=== PATIENT | female | born 1940 | race Caucasian/White ===

== ENCOUNTER 2019-12-31 17:28 | Inpatient (IN) | payer OTHER ==
[2019-12-31 19:30] LABS: ARTERIAL BLD GAS O2 SATURATION 39.4 % (95-98); ARTERIAL BLOOD GAS BASE EXCESS -2.2 mmol/L (-2-2); ARTERIAL BLOOD GAS PCO2 41.3 mmHg (35-45); ARTERIAL BLOOD GAS pH 7.36 (7.35-7.45); CARBOXYHEMOGLOBIN 0.5 % (0-2)
[2019-12-31 19:39] LABS: ARTERIAL BLOOD GAS PO2 < 49 mmHg (80-100)
[2019-12-31 19:46] LABS: BASO % 0.2 % (0-2.0); HEMATOCRIT 40.3 % (32.4-45.2); HEMOGLOBIN 13.5 GM/dL (10.7-15.3); LYMPH % 8.8 % (8-40); MCH 29.8 pg (25.7-33.7); MCHC 33.4 g/dl (32.0-36.0); MEAN CELL VOLUME 89.2 fl (80-96); MEAN PLT VOLUME 9.2 fl (7.5-11.1); MONO % 2.7 % (3.8-10.2); NEUT % 88.3 % (42.8-82.8); PLATELET COUNT 388 K/MM3 (134-434); RBC 4.52 M/mm3 (3.60-5.2); RDW 13.8 % (11.6-15.6); WHITE BLOOD COUNT 12.7 K/mm3 (4.0-10.0)
[2019-12-31 19:49] LABS: INR 1.18 (0.83-1.09)
[2019-12-31 19:52] LABS: ACTIVATED PTT 32.7 SECONDS (25.2-36.5)
[2019-12-31 20:08] LABS: ARTERIAL BLOOD GAS BASE EXCESS -0.9 mmol/L (-2-2); ARTERIAL BLOOD GAS PO2 53.1 mmHg (80-100); ARTERIAL BLOOD GAS pH 7.47 (7.35-7.45)
[2019-12-31 20:11] LABS: ALBUMIN 2.8 g/dl (3.4-5.0); ALK PHOS 136 U/L (45-117); ANION GAP 12 MMOL/L (8-16); BILIRUBIN,TOTAL 0.6 mg/dL (0.2-1); BLOOD UREA NITROGEN 22.9 mg/dL (7-18); CALCIUM 8.3 mg/dL (8.5-10.1); CHLORIDE 102 mmol/L (98-107); CO2 21 mmol/L (21-32); GLUCOSE,RANDOM 117 mg/dL (74-106); POTASSIUM 3.4 mmol/L (3.5-5.1); SGOT/AST 58 U/L (15-37); SGPT/ALT 35 U/L (13-61); SODIUM 135 mmol/L (136-145); TOT PROT 8.2 g/dl (6.4-8.2)
[2019-12-31] MEDS ORDERED: PIPERACILLIN/TAZOB 4.5 GM 4.5 GM in DEXTROSE 5%-WATER 100 ML IVPB ONE (21:48)
[2019-12-31] MEDS ORDERED: VANCOMYCIN 1 GM in D5W (PRE-DOCKED) 1,000 MG/250 ML IVPB ONE (21:48)
[2019-12-31] MEDS ORDERED: ALBUTEROL SO4 HFA INHALER IH PRN (23:14)
[2019-12-31] MEDS ORDERED: CEFTRIAXONE 1 GM in DEXTROSE 5%-WATER - 50 ML IVPB SCH (23:45)
[2020-01-01] MEDS ORDERED: HYDROXYCHLOROQUINE SO4 200 MG TABLET (FP) PO ONE ×2 (00:41→00:45)
[2020-01-01] MEDS ORDERED: CEFTRIAXONE 1 GM/50 ML BAG ONE (00:42)
[2020-01-01] MEDS: HYDROXYCHLOROQUINE SO4 200 MG TABLET (FP) PO SCH ×3 (00:53→22:28)
[2020-01-01] MEDS ORDERED: CEFTRIAXONE 1 GM in DEXTROSE 5%-WATER - 50 ML IVPB SCH (01:45)
[2020-01-01 02:49] LABS: EPI CELLS 17 /uL (0-25.1); HYALINE CASTS 6 /uL (0-3.1); PH,URINE 5.5 (5.0-8.0); URINE APPEARANCE CLOUDY; URINE BACTERIA 569 /uL (0-1359); URINE BILIRUBIN NEGATIVE (NEGATIVE); URINE COLOR YELLOW; URINE GLUCOSE (UA) NEGATIVE (NEGATIVE); URINE KETONE NEGATIVE (NEGATIVE); URINE LEUK ESTERASE 1+ (NEGATIVE); URINE NITRITE NEGATIVE (NEGATIVE); URINE PROTEIN 1+ (NEGATIVE); URINE RBC 33 /uL (0-23.9); URINE WBC 143 /uL (0-25.8)
[2020-01-01 03:42] LABS: LDH 617 U/L (84-246)
[2020-01-01] MEDS: INSULIN SLIDING SCALE (NOVOLOG) 1 VIAL SQ SCH ×4 (06:03→22:42)
[2020-01-01 08:43] LABS: BASO % 0.1 % (0-2.0); HEMATOCRIT 34.1 % (32.4-45.2); HEMOGLOBIN 11.8 GM/dL (10.7-15.3); LYMPH % 14.6 % (8-40); MCH 30.2 pg (25.7-33.7); MCHC 34.6 g/dl (32.0-36.0); MEAN CELL VOLUME 87.2 fl (80-96); MEAN PLT VOLUME 8.6 fl (7.5-11.1); MONO % 2.7 % (3.8-10.2); NEUT % 82.6 % (42.8-82.8); PLATELET COUNT 362 K/MM3 (134-434); RDW 13.7 % (11.6-15.6); WHITE BLOOD COUNT 9.5 K/mm3 (4.0-10.0)
[2020-01-01 09:26] LABS: BLOOD UREA NITROGEN 22.7 mg/dL (7-18); CALCIUM 8.1 mg/dL (8.5-10.1); CREATININE 0.8 mg/dL (0.55-1.3); MAGNESIUM 2.4 mg/dL (1.8-2.4); POTASSIUM 3.3 mmol/L (3.5-5.1)
[2020-01-01] MEDS ORDERED: POTASSIUM CHLORIDE TABS 20 MEQ TABLET.ER (FP) PO ONE (10:28)
[2020-01-01] MEDS: ZINC SULFATE 220 MG CAPSULE (FP) PO SCH ×2 (10:58→22:28)
[2020-01-01] MEDS: ENOXAPARIN NA (PORCINE) 40 MG/0.4 ML DISP.SYRIN SQ SCH (10:59)
[2020-01-01] MEDS: AZITHROMYCIN 250 MG TABLET PO SCH (10:59)
[2020-01-01] MEDS ORDERED: cefTRIAXone SODIUM 1 GM VIAL ONE (21:56)
[2020-01-01] MEDS ORDERED: DEXTROSE 5%-WATER - 50 ML IVPB ONE (21:56)
[2020-01-01] MEDS ORDERED: HYDROXYCHLOROQUINE SO4 200 MG TABLET (FP) PO SCH ×2 (22:00)
[2020-01-01] MEDS: CEFTRIAXONE 1 GM in DEXTROSE 5%-WATER - 50 ML IVPB SCH (22:25)
[2020-01-01] MEDS: ATORVASTATIN CA 40 MG TABLET (FP) PO SCH (22:28)
[2020-01-01] MEDS: ASCORBIC ACID 500 MG TABLET (FP) PO SCH (22:29)
[2020-01-02] MEDS: ACETAMINOPHEN 500 MG TABLET (FP) PO PRN ×2 (02:35→23:19)
[2020-01-02] MEDS: INSULIN SLIDING SCALE (NOVOLOG) 1 VIAL SQ SCH ×4 (06:15→23:31)
[2020-01-02] MEDS: ZINC SULFATE 220 MG CAPSULE (FP) PO SCH ×2 (09:38→23:19)
[2020-01-02] MEDS: ENOXAPARIN NA (PORCINE) 40 MG/0.4 ML DISP.SYRIN SQ SCH (09:38)
[2020-01-02] MEDS: ASCORBIC ACID 500 MG TABLET (FP) PO SCH ×2 (09:38→23:18)
[2020-01-02] MEDS: HYDROXYCHLOROQUINE SO4 200 MG TABLET (FP) PO SCH ×2 (09:38→23:19)
[2020-01-02] MEDS: AZITHROMYCIN 250 MG TABLET PO SCH (09:41)
[2020-01-02 11:49] LABS: BASO % 0.2 % (0-2.0); EOS % 0.1 % (0-4.5); HEMATOCRIT 37.9 % (32.4-45.2); HEMOGLOBIN 12.4 GM/dL (10.7-15.3); LYMPH % 8.7 % (8-40); MCH 29.2 pg (25.7-33.7); MCHC 32.6 g/dl (32.0-36.0); MEAN CELL VOLUME 89.4 fl (80-96); MEAN PLT VOLUME 8.5 fl (7.5-11.1); MONO % 2.8 % (3.8-10.2); NEUT % 88.2 % (42.8-82.8); PLATELET COUNT 404 K/MM3 (134-434); RBC 4.24 M/mm3 (3.60-5.2); WHITE BLOOD COUNT 9.4 K/mm3 (4.0-10.0)
[2020-01-02 12:24] LABS: ALBUMIN 2.2 g/dl (3.4-5.0); BILIRUBIN,TOTAL 0.5 mg/dL (0.2-1); BLOOD UREA NITROGEN 15.8 mg/dL (7-18); CALCIUM 8.3 mg/dL (8.5-10.1); CREATININE 0.6 mg/dL (0.55-1.3); MAGNESIUM 2.2 mg/dL (1.8-2.4); PHOSPHOROUS 3.2 mg/dL (2.5-4.9); POTASSIUM 3.6 mmol/L (3.5-5.1); TOT PROT 6.9 g/dl (6.4-8.2)
[2020-01-02] MEDS ORDERED: HYDROXYCHLOROQUINE SO4 200 MG TABLET (FP) PO SCH (22:00)
[2020-01-02] MEDS ORDERED: cefTRIAXone SODIUM 1 GM VIAL ONE (22:37)
[2020-01-02] MEDS ORDERED: DEXTROSE 5%-WATER - 50 ML IVPB ONE (22:37)
[2020-01-02] MEDS: CEFTRIAXONE 1 GM in DEXTROSE 5%-WATER - 50 ML IVPB SCH (23:18)
[2020-01-02] MEDS: ATORVASTATIN CA 40 MG TABLET (FP) PO SCH (23:19)
[2020-01-03] MEDS: INSULIN SLIDING SCALE (NOVOLOG) 1 VIAL SQ SCH ×4 (06:20→22:10)
[2020-01-03 07:49] LABS: BASO % 0.1 % (0-2.0); EOS % 0.1 % (0-4.5); HEMATOCRIT 39.6 % (32.4-45.2); HEMOGLOBIN 12.9 GM/dL (10.7-15.3); LYMPH % 8.4 % (8-40); MCH 29.3 pg (25.7-33.7); MCHC 32.6 g/dl (32.0-36.0); MEAN CELL VOLUME 89.8 fl (80-96); MEAN PLT VOLUME 8.2 fl (7.5-11.1); MONO % 2.6 % (3.8-10.2); NEUT % 88.8 % (42.8-82.8); PLATELET COUNT 364 K/MM3 (134-434); RBC 4.42 M/mm3 (3.60-5.2); RDW 14.1 % (11.6-15.6)
[2020-01-03 08:32] LABS: ALBUMIN 2.3 g/dl (3.4-5.0); BILIRUBIN,TOTAL 0.6 mg/dL (0.2-1); BLOOD UREA NITROGEN 15.4 mg/dL (7-18); CALCIUM 8.4 mg/dL (8.5-10.1); CREATININE 0.6 mg/dL (0.55-1.3); MAGNESIUM 2.5 mg/dL (1.8-2.4); PHOSPHOROUS 3.8 mg/dL (2.5-4.9); POTASSIUM 3.7 mmol/L (3.5-5.1); TOT PROT 7.2 g/dl (6.4-8.2)
[2020-01-03] MEDS: ZINC SULFATE 220 MG CAPSULE (FP) PO SCH ×2 (10:28→22:00)
[2020-01-03] MEDS: AZITHROMYCIN 250 MG TABLET PO SCH (10:29)
[2020-01-03] MEDS: HYDROXYCHLOROQUINE SO4 200 MG TABLET (FP) PO SCH ×2 (10:29→22:00)
[2020-01-03] MEDS: ASCORBIC ACID 500 MG TABLET (FP) PO SCH ×2 (10:29→22:00)
[2020-01-03] MEDS: ENOXAPARIN NA (PORCINE) 40 MG/0.4 ML DISP.SYRIN SQ SCH (10:35)
[2020-01-03] MEDS ORDERED: cefTRIAXone SODIUM 1 GM VIAL ONE (21:34)
[2020-01-03] MEDS ORDERED: DEXTROSE 5%-WATER - 50 ML IVPB ONE (21:34)
[2020-01-03] MEDS: ATORVASTATIN CA 40 MG TABLET (FP) PO SCH (22:00)
[2020-01-03] MEDS: CEFTRIAXONE 1 GM in DEXTROSE 5%-WATER - 50 ML IVPB SCH (22:01)
[2020-01-03] MEDS: ENOXAPARIN NA (PORCINE) 80 MG/0.8 ML DISP.SYRIN SQ SCH (22:01)
[2020-01-04] MEDS: INSULIN SLIDING SCALE (NOVOLOG) 1 VIAL SQ SCH ×4 (06:03→22:40)
[2020-01-04 07:27] LABS: BASO % 0.2 % (0-2.0); HEMATOCRIT 36.8 % (32.4-45.2); HEMOGLOBIN 12.3 GM/dL (10.7-15.3); LYMPH % 10.7 % (8-40); MCH 29.4 pg (25.7-33.7); MCHC 33.4 g/dl (32.0-36.0); MEAN CELL VOLUME 88.1 fl (80-96); MEAN PLT VOLUME 8.4 fl (7.5-11.1); MONO % 2.3 % (3.8-10.2); NEUT % 85.8 % (42.8-82.8); PLATELET COUNT 370 K/MM3 (134-434); RBC 4.17 M/mm3 (3.60-5.2); RDW 13.9 % (11.6-15.6); WHITE BLOOD COUNT 9.6 K/mm3 (4.0-10.0)
[2020-01-04 07:51] LABS: ALBUMIN 2.2 g/dl (3.4-5.0); BILIRUBIN,TOTAL 0.6 mg/dL (0.2-1); BLOOD UREA NITROGEN 16.3 mg/dL (7-18); CALCIUM 8.2 mg/dL (8.5-10.1); CREATININE 0.6 mg/dL (0.55-1.3); MAGNESIUM 2.4 mg/dL (1.8-2.4); PHOSPHOROUS 3.6 mg/dL (2.5-4.9); POTASSIUM 3.9 mmol/L (3.5-5.1)
[2020-01-04] MEDS: ZINC SULFATE 220 MG CAPSULE (FP) PO SCH ×2 (10:51→22:15)
[2020-01-04] MEDS: AZITHROMYCIN 250 MG TABLET PO SCH (10:51)
[2020-01-04] MEDS: ENOXAPARIN NA (PORCINE) 80 MG/0.8 ML DISP.SYRIN SQ SCH ×2 (10:51→22:16)
[2020-01-04] MEDS: HYDROXYCHLOROQUINE SO4 200 MG TABLET (FP) PO SCH ×2 (10:51→22:15)
[2020-01-04] MEDS: ASCORBIC ACID 500 MG TABLET (FP) PO SCH ×2 (11:00→22:15)
[2020-01-04] MEDS ORDERED: DEXTROSE 5%-WATER - 50 ML IVPB ONE (22:01)
[2020-01-04] MEDS ORDERED: cefTRIAXone SODIUM 1 GM VIAL ONE (22:01)
[2020-01-04] MEDS: ATORVASTATIN CA 40 MG TABLET (FP) PO SCH (22:15)
[2020-01-04] MEDS: CEFTRIAXONE 1 GM in DEXTROSE 5%-WATER - 50 ML IVPB SCH (22:17)
[2020-01-05] MEDS: INSULIN SLIDING SCALE (NOVOLOG) 1 VIAL SQ SCH ×3 (06:10→21:25)
[2020-01-05] MEDS: ENOXAPARIN NA (PORCINE) 80 MG/0.8 ML DISP.SYRIN SQ SCH ×2 (09:28→21:25)
[2020-01-05] MEDS: ZINC SULFATE 220 MG CAPSULE (FP) PO SCH ×2 (09:29→21:29)
[2020-01-05] MEDS: AZITHROMYCIN 250 MG TABLET PO SCH (09:29)
[2020-01-05] MEDS: ASCORBIC ACID 500 MG TABLET (FP) PO SCH ×2 (09:29→21:23)
[2020-01-05] MEDS: HYDROXYCHLOROQUINE SO4 200 MG TABLET (FP) PO SCH (09:29)
[2020-01-05 10:06] LABS: BASO % 1.2 % (0-2.0); EOS % 0.3 % (0-4.5); HEMATOCRIT 36.3 % (32.4-45.2); HEMOGLOBIN 11.8 GM/dL (10.7-15.3); LYMPH % 6.7 % (8-40); MCH 28.8 pg (25.7-33.7); MCHC 32.4 g/dl (32.0-36.0); MEAN CELL VOLUME 88.8 fl (80-96); MEAN PLT VOLUME 8.5 fl (7.5-11.1); MONO % 2.5 % (3.8-10.2); NEUT % 89.3 % (42.8-82.8); PLATELET COUNT 415 K/MM3 (134-434); RBC 4.09 M/mm3 (3.60-5.2); RDW 14.4 % (11.6-15.6); WHITE BLOOD COUNT 12.2 K/mm3 (4.0-10.0)
[2020-01-05 10:31] LABS: ALBUMIN 2.1 g/dl (3.4-5.0); BILIRUBIN,TOTAL 0.6 mg/dL (0.2-1); CREATININE 0.6 mg/dL (0.55-1.3); POTASSIUM 4.2 mmol/L (3.5-5.1); TOT PROT 7.1 g/dl (6.4-8.2)
[2020-01-05 13:36] LABS: ANISOCYTOSIS 0; MACROCYTOSIS 0; PLATELET ESTIMATE NORMAL
[2020-01-05] MEDS ORDERED: DEXTROSE 5%-WATER - 50 ML IVPB ONE (20:35)
[2020-01-05] MEDS ORDERED: cefTRIAXone SODIUM 1 GM VIAL ONE (20:35)
[2020-01-05] MEDS: ATORVASTATIN CA 40 MG TABLET (FP) PO SCH (21:23)
[2020-01-05] MEDS: CEFTRIAXONE 1 GM in DEXTROSE 5%-WATER - 50 ML IVPB SCH (21:24)
[2020-01-06] MEDS: INSULIN SLIDING SCALE (NOVOLOG) 1 VIAL SQ SCH ×3 (06:17→16:46)
[2020-01-06 07:28] LABS: BASO % 0.1 % (0-2.0); EOS % 0.4 % (0-4.5); HEMATOCRIT 37.3 % (32.4-45.2); HEMOGLOBIN 12.2 GM/dL (10.7-15.3); MCHC 32.6 g/dl (32.0-36.0); MEAN PLT VOLUME 8.5 fl (7.5-11.1); MONO % 1.3 % (3.8-10.2); NEUT % 91.2 % (42.8-82.8); PLATELET COUNT 406 K/MM3 (134-434); RBC 4.19 M/mm3 (3.60-5.2); RDW 14.2 % (11.6-15.6); WHITE BLOOD COUNT 13.4 K/mm3 (4.0-10.0)
[2020-01-06 07:59] LABS: ALBUMIN 2.1 g/dl (3.4-5.0); CALCIUM 8.2 mg/dL (8.5-10.1); CREATININE 0.7 mg/dL (0.55-1.3); MAGNESIUM 2.4 mg/dL (1.8-2.4); PHOSPHOROUS 3.7 mg/dL (2.5-4.9); POTASSIUM 4.4 mmol/L (3.5-5.1); TOT PROT 7.2 g/dl (6.4-8.2)
[2020-01-06 09:46] LABS: ANISOCYTOSIS 0; MACROCYTOSIS 0; PLATELET ESTIMATE NORMAL
[2020-01-06] MEDS ORDERED: methylPREDNISolone NA SUCC 125 MG/2 ML VIAL IVPUSH SCH (10:45)
[2020-01-06] MEDS: ENOXAPARIN NA (PORCINE) 80 MG/0.8 ML DISP.SYRIN SQ SCH ×2 (10:51→22:36)
[2020-01-06] MEDS: ZINC SULFATE 220 MG CAPSULE (FP) PO SCH ×2 (10:52→22:37)
[2020-01-06] MEDS: ASCORBIC ACID 500 MG TABLET (FP) PO SCH ×2 (10:52→22:35)
[2020-01-06] MEDS: HYDROXYCHLOROQUINE SO4 200 MG TABLET (FP) PO SCH ×2 (13:40→22:37)
[2020-01-06] MEDS ORDERED: methylPREDNISolone NA SUCC 40 MG/1 ML VIAL IVPUSH ONE (15:34)
[2020-01-06] MEDS ORDERED: methylPREDNISolone NA SUCC 40 MG/1 ML VIAL IVPUSH SCH (22:00)
[2020-01-06] MEDS ORDERED: DEXTROSE 5%-WATER - 50 ML IVPB ONE (22:30)
[2020-01-06] MEDS ORDERED: cefTRIAXone SODIUM 1 GM VIAL ONE (22:30)
[2020-01-06] MEDS: ATORVASTATIN CA 40 MG TABLET (FP) PO SCH (22:36)
[2020-01-06] MEDS: CEFTRIAXONE 1 GM in DEXTROSE 5%-WATER - 50 ML IVPB SCH (22:55)
[2020-01-06] MEDS: ACETAMINOPHEN 500 MG TABLET (FP) PO PRN (22:57)
[2020-01-07 07:10] LABS: BASO % 0.1 % (0-2.0); EOS % 0.1 % (0-4.5); HEMATOCRIT 37.2 % (32.4-45.2); HEMOGLOBIN 12.2 GM/dL (10.7-15.3); LYMPH % 5.5 % (8-40); MCHC 32.7 g/dl (32.0-36.0); MEAN CELL VOLUME 88.7 fl (80-96); MEAN PLT VOLUME 8.8 fl (7.5-11.1); MONO % 1.7 % (3.8-10.2); NEUT % 92.6 % (42.8-82.8); PLATELET COUNT 443 K/MM3 (134-434); RDW 14.4 % (11.6-15.6); WHITE BLOOD COUNT 10.7 K/mm3 (4.0-10.0)
[2020-01-07] MEDS: INSULIN SLIDING SCALE (NOVOLOG) 1 VIAL SQ SCH ×4 (08:00→22:14)
[2020-01-07 08:08] LABS: BILIRUBIN,TOTAL 0.6 mg/dL (0.2-1); BLOOD UREA NITROGEN 29.8 mg/dL (7-18); CALCIUM 8.3 mg/dL (8.5-10.1); CREATININE 0.6 mg/dL (0.55-1.3); MAGNESIUM 2.8 mg/dL (1.8-2.4); PHOSPHOROUS 3.9 mg/dL (2.5-4.9); POTASSIUM 3.9 mmol/L (3.5-5.1); TOT PROT 7.1 g/dl (6.4-8.2)
[2020-01-07 09:53] LABS: ANISOCYTOSIS 0; MACROCYTOSIS 0; PLATELET ESTIMATE NORMAL
[2020-01-07] MEDS: methylPREDNISolone NA SUCC 40 MG/1 ML VIAL IVPUSH SCH ×2 (10:31→21:55)
[2020-01-07] MEDS: ENOXAPARIN NA (PORCINE) 80 MG/0.8 ML DISP.SYRIN SQ SCH ×2 (10:31→21:59)
[2020-01-07] MEDS: ASCORBIC ACID 500 MG TABLET (FP) PO SCH ×2 (10:32→21:55)
[2020-01-07] MEDS: HYDROXYCHLOROQUINE SO4 200 MG TABLET (FP) PO SCH ×2 (10:32→21:57)
[2020-01-07] MEDS: ZINC SULFATE 220 MG CAPSULE (FP) PO SCH ×2 (10:32→21:55)
[2020-01-07] MEDS: PETROLATUM, WHITE 30 GM TUBE TP SCH (12:11)
[2020-01-07] MEDS ORDERED: cefTRIAXone SODIUM 1 GM VIAL ONE (21:48)
[2020-01-07] MEDS ORDERED: DEXTROSE 5%-WATER - 50 ML IVPB ONE (21:49)
[2020-01-07] MEDS: ACETAMINOPHEN 500 MG TABLET (FP) PO PRN (21:56)
[2020-01-07] MEDS: CEFTRIAXONE 1 GM in DEXTROSE 5%-WATER - 50 ML IVPB SCH (21:58)
[2020-01-07] MEDS: ATORVASTATIN CA 40 MG TABLET (FP) PO SCH (21:59)
[2020-01-08] MEDS: ENOXAPARIN NA (PORCINE) 80 MG/0.8 ML DISP.SYRIN SQ SCH ×2 (09:14→22:59)
[2020-01-08] MEDS: ZINC SULFATE 220 MG CAPSULE (FP) PO SCH ×2 (09:15→22:59)
[2020-01-08] MEDS: HYDROXYCHLOROQUINE SO4 200 MG TABLET (FP) PO SCH ×3 (09:16→22:59)
[2020-01-08] MEDS: PETROLATUM, WHITE 30 GM TUBE TP SCH (09:17)
[2020-01-08] MEDS: ASCORBIC ACID 500 MG TABLET (FP) PO SCH ×2 (09:17→23:00)
[2020-01-08] MEDS: methylPREDNISolone NA SUCC 40 MG/1 ML VIAL IVPUSH SCH ×2 (09:17→23:00)
[2020-01-08] MEDS ORDERED: guaiFENesin/D-M SUGAR-FREE/ACLHOL-FREE 118 ML BOTTLE PO PRN (10:28)
[2020-01-08] MEDS: INSULIN SLIDING SCALE (NOVOLOG) 1 VIAL SQ SCH ×3 (11:16→22:57)
[2020-01-08] MEDS ORDERED: DEXTROSE 5%-WATER - 50 ML IVPB ONE (21:43)
[2020-01-08] MEDS ORDERED: cefTRIAXone SODIUM 1 GM VIAL ONE (21:43)
[2020-01-08] MEDS: ATORVASTATIN CA 40 MG TABLET (FP) PO SCH (22:59)
[2020-01-09 06:12] LABS: BASO % 0.2 % (0-2.0); HEMATOCRIT 37.4 % (32.4-45.2); HEMOGLOBIN 12.2 GM/dL (10.7-15.3); MCHC 32.7 g/dl (32.0-36.0); MEAN CELL VOLUME 88.6 fl (80-96); MEAN PLT VOLUME 8.7 fl (7.5-11.1); MONO % 2.2 % (3.8-10.2); NEUT % 93.6 % (42.8-82.8); PLATELET COUNT 547 K/MM3 (134-434); RBC 4.22 M/mm3 (3.60-5.2); RDW 14.3 % (11.6-15.6)
[2020-01-09 06:41] LABS: BLOOD UREA NITROGEN 32.2 mg/dL (7-18); CALCIUM 8.3 mg/dL (8.5-10.1); CREATININE 0.6 mg/dL (0.55-1.3); MAGNESIUM 2.5 mg/dL (1.8-2.4); PHOSPHOROUS 3.7 mg/dL (2.5-4.9); POTASSIUM 3.8 mmol/L (3.5-5.1)
[2020-01-09] MEDS: INSULIN SLIDING SCALE (NOVOLOG) 1 VIAL SQ SCH ×4 (07:06→22:37)
[2020-01-09] MEDS: ZINC SULFATE 220 MG CAPSULE (FP) PO SCH ×2 (09:32→22:00)
[2020-01-09] MEDS: ENOXAPARIN NA (PORCINE) 80 MG/0.8 ML DISP.SYRIN SQ SCH ×2 (09:32→22:00)
[2020-01-09] MEDS: methylPREDNISolone NA SUCC 40 MG/1 ML VIAL IVPUSH SCH ×2 (09:33→22:00)
[2020-01-09] MEDS: HYDROXYCHLOROQUINE SO4 200 MG TABLET (FP) PO SCH ×2 (09:33→22:00)
[2020-01-09] MEDS: PANTOPRAZOLE SODIUM 40 MG VIAL IVPUSH SCH (09:33)
[2020-01-09] MEDS: MUPIROCIN 2% TOPICAL OINTMENT FOR DECOLONIZATION NS SCH ×2 (09:34→22:01)
[2020-01-09] MEDS: ASCORBIC ACID 500 MG TABLET (FP) PO SCH ×2 (09:34→22:01)
[2020-01-09] MEDS: PETROLATUM, WHITE 30 GM TUBE TP SCH (09:34)
[2020-01-09 14:22] LABS: ANISOCYTOSIS 1+; MACROCYTOSIS 1+; OVALOCYTE 1+; PLATELET ESTIMATE INCREASED
[2020-01-09] MEDS: SODIUM CHLORIDE 0.45% 1,000 ML IV SCH (15:02)
[2020-01-09] MEDS: ATORVASTATIN CA 40 MG TABLET (FP) PO SCH (22:00)
[2020-01-09] MEDS: CHLORHEXIDINE GLUCONATE 4% CLEANSER FOR DECOLONIZATION TP SCH (22:00)
[2020-01-10] MEDS: INSULIN SLIDING SCALE (NOVOLOG) 1 VIAL SQ SCH ×4 (06:23→23:00)
[2020-01-10 07:27] LABS: BASO % 0.3 % (0-2.0); HEMATOCRIT 37.2 % (32.4-45.2); HEMOGLOBIN 12.2 GM/dL (10.7-15.3); LYMPH % 3.4 % (8-40); MCHC 32.9 g/dl (32.0-36.0); MEAN CELL VOLUME 88.2 fl (80-96); MONO % 1.4 % (3.8-10.2); NEUT % 94.9 % (42.8-82.8); PLATELET COUNT 521 K/MM3 (134-434); RBC 4.22 M/mm3 (3.60-5.2); WHITE BLOOD COUNT 10.8 K/mm3 (4.0-10.0)
[2020-01-10 07:59] LABS: ALBUMIN 2.1 g/dl (3.4-5.0); BILIRUBIN,TOTAL 0.5 mg/dL (0.2-1); BLOOD UREA NITROGEN 23.2 mg/dL (7-18); CALCIUM 7.8 mg/dL (8.5-10.1); CREATININE 0.5 mg/dL (0.55-1.3); MAGNESIUM 2.3 mg/dL (1.8-2.4); PHOSPHOROUS 3.4 mg/dL (2.5-4.9); POTASSIUM 4.1 mmol/L (3.5-5.1); TOT PROT 6.6 g/dl (6.4-8.2)
[2020-01-10] MEDS: PANTOPRAZOLE SODIUM 40 MG VIAL IVPUSH SCH (09:36)
[2020-01-10] MEDS: methylPREDNISolone NA SUCC 40 MG/1 ML VIAL IVPUSH SCH ×2 (09:36→23:00)
[2020-01-10] MEDS: ENOXAPARIN NA (PORCINE) 80 MG/0.8 ML DISP.SYRIN SQ SCH (09:36)
[2020-01-10] MEDS: MUPIROCIN 2% TOPICAL OINTMENT FOR DECOLONIZATION NS SCH ×2 (09:36→23:00)
[2020-01-10] MEDS: ZINC SULFATE 220 MG CAPSULE (FP) PO SCH ×2 (09:36→23:00)
[2020-01-10 10:40] LABS: ANISOCYTOSIS 0; MACROCYTOSIS 0; PLATELET ESTIMATE INCREASED
[2020-01-10] MEDS: PETROLATUM, WHITE 30 GM TUBE TP SCH (12:08)
[2020-01-10] MEDS: ASCORBIC ACID 500 MG TABLET (FP) PO SCH (12:38)
[2020-01-10] MEDS: SODIUM CHLORIDE 0.45% 1,000 ML IV SCH (17:41)
[2020-01-10] MEDS: CHLORHEXIDINE GLUCONATE 4% CLEANSER FOR DECOLONIZATION TP SCH (23:00)
[2020-01-10] MEDS: ASCORBIC ACID 500 MG/5 ML UNIT DOSE CUP PO SCH (23:00)
[2020-01-10] MEDS: ATORVASTATIN CA 40 MG TABLET (FP) PO SCH (23:00)
[2020-01-11] MEDS: SODIUM CHLORIDE NASAL SPRAY 44 ML BOTTLE NS PRN (04:21)
[2020-01-11 08:13] LABS: BASO % 0.1 % (0-2.0); EOS % 0.1 % (0-4.5); HEMATOCRIT 37.7 % (32.4-45.2); HEMOGLOBIN 12.1 GM/dL (10.7-15.3); LYMPH % 1.9 % (8-40); MCH 28.5 pg (25.7-33.7); MCHC 32.2 g/dl (32.0-36.0); MEAN CELL VOLUME 88.4 fl (80-96); MONO % 0.8 % (3.8-10.2); NEUT % 97.1 % (42.8-82.8); PLATELET COUNT 579 K/MM3 (134-434); RBC 4.27 M/mm3 (3.60-5.2); RDW 14.1 % (11.6-15.6); WHITE BLOOD COUNT 14.9 K/mm3 (4.0-10.0)
[2020-01-11 08:46] LABS: ALBUMIN 2.1 g/dl (3.4-5.0); BILIRUBIN,TOTAL 0.4 mg/dL (0.2-1); BLOOD UREA NITROGEN 19.1 mg/dL (7-18); CALCIUM 7.9 mg/dL (8.5-10.1); CREATININE 0.4 mg/dL (0.55-1.3); MAGNESIUM 2.1 mg/dL (1.8-2.4); PHOSPHOROUS 3.3 mg/dL (2.5-4.9); POTASSIUM 4.5 mmol/L (3.5-5.1); TOT PROT 6.4 g/dl (6.4-8.2)
[2020-01-11 09:11] LABS: ANISOCYTOSIS 0; MACROCYTOSIS 0; PLATELET ESTIMATE INCREASED
[2020-01-11] MEDS ORDERED: PT OWN MED DRAWER 7, Y5N ONE ×2 (10:08→21:23)
[2020-01-11] MEDS: ZINC SULFATE 220 MG CAPSULE (FP) PO SCH ×2 (10:09→21:33)
[2020-01-11] MEDS: methylPREDNISolone NA SUCC 40 MG/1 ML VIAL IVPUSH SCH ×2 (10:10→21:33)
[2020-01-11] MEDS: PANTOPRAZOLE SODIUM 40 MG VIAL IVPUSH SCH (10:12)
[2020-01-11] MEDS: ASCORBIC ACID 500 MG/5 ML UNIT DOSE CUP PO SCH (10:14)
[2020-01-11] MEDS: MUPIROCIN 2% TOPICAL OINTMENT FOR DECOLONIZATION NS SCH ×2 (17:54→21:33)
[2020-01-11] MEDS: ATORVASTATIN CA 40 MG TABLET (FP) PO SCH (21:33)
[2020-01-11] MEDS: CHLORHEXIDINE GLUCONATE 4% CLEANSER FOR DECOLONIZATION TP SCH (21:33)
[2020-01-12] MEDS: ASCORBIC ACID 500 MG/5 ML UNIT DOSE CUP PO SCH (00:23)
[2020-01-12] MEDS ORDERED: PT OWN MED DRAWER 7, Y5N ONE (08:16)
[2020-01-12 08:23] LABS: BASO % 0.2 % (0-2.0); HEMOGLOBIN 12.7 GM/dL (10.7-15.3); LYMPH % 4.6 % (8-40); MCH 28.4 pg (25.7-33.7); MCHC 31.7 g/dl (32.0-36.0); MEAN CELL VOLUME 89.5 fl (80-96); MEAN PLT VOLUME 9.1 fl (7.5-11.1); MONO % 1.6 % (3.8-10.2); NEUT % 93.6 % (42.8-82.8); PLATELET COUNT 543 K/MM3 (134-434); RBC 4.46 M/mm3 (3.60-5.2); WHITE BLOOD COUNT 12.4 K/mm3 (4.0-10.0)
[2020-01-12 08:42] LABS: ALLENS TEST POSITIVE; ARTERIAL BLD GAS O2 SATURATION 92.4 % (95-98); ARTERIAL BLOOD GAS BASE EXCESS 4.6 mmol/L (-2-2); ARTERIAL BLOOD GAS PCO2 43.1 mmHg (35-45); ARTERIAL BLOOD GAS PO2 67.6 mmHg (80-100); ARTERIAL BLOOD GAS pH 7.44 (7.35-7.45)
[2020-01-12 09:03] LABS: ALBUMIN 2.1 g/dl (3.4-5.0); BILIRUBIN,TOTAL 0.6 mg/dL (0.2-1); CREATININE 0.5 mg/dL (0.55-1.3); MAGNESIUM 2.5 mg/dL (1.8-2.4); PHOSPHOROUS 3.6 mg/dL (2.5-4.9); POTASSIUM 4.5 mmol/L (3.5-5.1); TOT PROT 6.4 g/dl (6.4-8.2)
[2020-01-12] MEDS: ZINC SULFATE 220 MG CAPSULE (FP) PO SCH ×2 (10:10→22:25)
[2020-01-12] MEDS: PANTOPRAZOLE SODIUM 40 MG VIAL IVPUSH SCH (10:38)
[2020-01-12] MEDS: MUPIROCIN 2% TOPICAL OINTMENT FOR DECOLONIZATION NS SCH ×2 (10:38→22:24)
[2020-01-12] MEDS: ASCORBIC ACID 1,000 MG TABLET PO SCH ×2 (10:38→22:25)
[2020-01-12] MEDS: SODIUM CHLORIDE NASAL SPRAY 44 ML BOTTLE NS PRN (10:39)
[2020-01-12 10:58] LABS: ANISOCYTOSIS 1+; MACROCYTOSIS 0; PLATELET ESTIMATE INCREASED
[2020-01-12] MEDS: CHLORHEXIDINE GLUCONATE 4% CLEANSER FOR DECOLONIZATION TP SCH (22:24)
[2020-01-12] MEDS: ATORVASTATIN CA 40 MG TABLET (FP) PO SCH (22:25)
[2020-01-13] MEDS ORDERED: METOCLOPRAMIDE HCL INJECTION 10 MG/2 ML VIAL IVPUSH ONE (03:50)
[2020-01-13] MEDS ORDERED: FAMOTIDINE 20 MG/50 ML IVPB 20 MG/50 ML MG IVPB ONE (04:28)
[2020-01-13] MEDS: SODIUM CHLORIDE NASAL SPRAY 44 ML BOTTLE NS PRN (05:15)
[2020-01-13 06:33] LABS: BASO % 0.3 % (0-2.0); EOS % 0.8 % (0-4.5); HEMATOCRIT 40.6 % (32.4-45.2); HEMOGLOBIN 13.2 GM/dL (10.7-15.3); LYMPH % 5.8 % (8-40); MCH 28.9 pg (25.7-33.7); MCHC 32.6 g/dl (32.0-36.0); MEAN CELL VOLUME 88.9 fl (80-96); MEAN PLT VOLUME 8.4 fl (7.5-11.1); MONO % 1.7 % (3.8-10.2); NEUT % 91.4 % (42.8-82.8); PLATELET COUNT 523 K/MM3 (134-434); RBC 4.57 M/mm3 (3.60-5.2); RDW 14.3 % (11.6-15.6); WHITE BLOOD COUNT 20.4 K/mm3 (4.0-10.0)
[2020-01-13 07:01] LABS: ALBUMIN 2.4 g/dl (3.4-5.0); BILIRUBIN,TOTAL 0.5 mg/dL (0.2-1); BLOOD UREA NITROGEN 25.5 mg/dL (7-18); CALCIUM 8.1 mg/dL (8.5-10.1); CREATININE 0.5 mg/dL (0.55-1.3); PHOSPHOROUS 3.8 mg/dL (2.5-4.9); TOT PROT 6.8 g/dl (6.4-8.2)
[2020-01-13 07:21] LABS: ARTERIAL BLOOD GAS BASE EXCESS 3.7 mmol/L (-2-2); ARTERIAL BLOOD GAS PO2 56.7 mmHg (80-100)
[2020-01-13 08:08] LABS: ALLENS TEST POSITIVE
[2020-01-13] MEDS ORDERED: PT OWN MED DRAWER 7, Y5N ONE (08:19)
[2020-01-13 08:52] LABS: MAGNESIUM 2.3 mg/dL (1.8-2.4); POTASSIUM 4.5 mmol/L (3.5-5.1)
[2020-01-13] MEDS: MUPIROCIN 2% TOPICAL OINTMENT FOR DECOLONIZATION NS SCH ×2 (09:08→21:26)
[2020-01-13] MEDS: ZINC SULFATE 220 MG CAPSULE (FP) PO SCH ×2 (09:08→21:32)
[2020-01-13] MEDS: ASCORBIC ACID 1,000 MG TABLET PO SCH ×2 (09:08→21:32)
[2020-01-13] MEDS: PANTOPRAZOLE SODIUM 40 MG VIAL IVPUSH SCH (09:08)
[2020-01-13 09:51] LABS: ANISOCYTOSIS 0; MACROCYTOSIS 0; PLATELET ESTIMATE INCREASED
[2020-01-13] MEDS: CHLORHEXIDINE GLUCONATE 4% CLEANSER FOR DECOLONIZATION TP SCH (21:26)
[2020-01-13] MEDS: ATORVASTATIN CA 40 MG TABLET (FP) PO SCH (21:32)
[2020-01-14 06:33] LABS: BASO % 0.2 % (0-2.0); EOS % 1.7 % (0-4.5); HEMATOCRIT 42.2 % (32.4-45.2); HEMOGLOBIN 13.7 GM/dL (10.7-15.3); LYMPH % 7.1 % (8-40); MCH 29.1 pg (25.7-33.7); MCHC 32.4 g/dl (32.0-36.0); MEAN CELL VOLUME 89.8 fl (80-96); MEAN PLT VOLUME 8.6 fl (7.5-11.1); MONO % 1.1 % (3.8-10.2); NEUT % 89.9 % (42.8-82.8); PLATELET COUNT 409 K/MM3 (134-434); RDW 14.6 % (11.6-15.6); WHITE BLOOD COUNT 13.1 K/mm3 (4.0-10.0)
[2020-01-14 07:15] LABS: ALBUMIN 2.1 g/dl (3.4-5.0); BILIRUBIN,TOTAL 0.5 mg/dL (0.2-1); CREATININE 0.4 mg/dL (0.55-1.3); MAGNESIUM 2.2 mg/dL (1.8-2.4); PHOSPHOROUS 3.5 mg/dL (2.5-4.9); POTASSIUM 4.5 mmol/L (3.5-5.1); TOT PROT 6.5 g/dl (6.4-8.2)
[2020-01-14] MEDS ORDERED: PT OWN MED DRAWER 7, Y5N ONE (09:05)
[2020-01-14] MEDS: ZINC SULFATE 220 MG CAPSULE (FP) PO SCH ×2 (11:00→22:13)
[2020-01-14] MEDS: ASCORBIC ACID 1,000 MG TABLET PO SCH ×2 (11:00→22:13)
[2020-01-14] MEDS: PANTOPRAZOLE SODIUM 40 MG VIAL IVPUSH SCH (11:00)
[2020-01-14] MEDS: CHLORHEXIDINE GLUCONATE 4% CLEANSER FOR DECOLONIZATION TP SCH (22:13)
[2020-01-14] MEDS: ATORVASTATIN CA 40 MG TABLET (FP) PO SCH (22:13)
[2020-01-15] MEDS ORDERED: PT OWN MED DRAWER 7, Y5N ONE (01:45)
[2020-01-15 07:13] LABS: EOS % 2.2 % (0-4.5); HEMATOCRIT 41.6 % (32.4-45.2); HEMOGLOBIN 13.3 GM/dL (10.7-15.3); LYMPH % 8.1 % (8-40); MCH 28.3 pg (25.7-33.7); MCHC 31.9 g/dl (32.0-36.0); MEAN CELL VOLUME 88.7 fl (80-96); MEAN PLT VOLUME 8.7 fl (7.5-11.1); MONO % 2.2 % (3.8-10.2); NEUT % 87.5 % (42.8-82.8); PLATELET COUNT 395 K/MM3 (134-434); RBC 4.69 M/mm3 (3.60-5.2); RDW 14.8 % (11.6-15.6); WHITE BLOOD COUNT 12.2 K/mm3 (4.0-10.0)
[2020-01-15 07:44] LABS: BILIRUBIN,TOTAL 0.5 mg/dL (0.2-1); CALCIUM 8.3 mg/dL (8.5-10.1); CREATININE 0.5 mg/dL (0.55-1.3); MAGNESIUM 2.3 mg/dL (1.8-2.4); PHOSPHOROUS 3.2 mg/dL (2.5-4.9); POTASSIUM 4.6 mmol/L (3.5-5.1); TOT PROT 6.5 g/dl (6.4-8.2)
[2020-01-15] MEDS: ZINC SULFATE 220 MG CAPSULE (FP) PO SCH ×2 (09:24→22:09)
[2020-01-15] MEDS: PANTOPRAZOLE SODIUM 40 MG VIAL IVPUSH SCH (09:24)
[2020-01-15] MEDS: ASCORBIC ACID 1,000 MG TABLET PO SCH ×2 (09:24→22:09)
[2020-01-15] MEDS ORDERED: methylPREDNISolone NA SUCC 40 MG/1 ML VIAL IVPUSH ONE (11:00)
[2020-01-15] MEDS: ENOXAPARIN NA (PORCINE) 60 MG/0.6 ML DISP.SYRIN SQ SCH ×2 (11:25→22:08)
[2020-01-15] MEDS: CHLORHEXIDINE GLUCONATE 4% CLEANSER FOR DECOLONIZATION TP SCH (22:08)
[2020-01-15] MEDS: ATORVASTATIN CA 40 MG TABLET (FP) PO SCH (22:08)
[2020-01-15] MEDS: methylPREDNISolone NA SUCC 40 MG/1 ML VIAL IVPUSH SCH (22:09)
[2020-01-16 06:56] LABS: BASO % 0.2 % (0-2.0); HEMATOCRIT 42.5 % (32.4-45.2); HEMOGLOBIN 13.8 GM/dL (10.7-15.3); LYMPH % 6.1 % (8-40); MCH 29.1 pg (25.7-33.7); MCHC 32.5 g/dl (32.0-36.0); MEAN CELL VOLUME 89.3 fl (80-96); MEAN PLT VOLUME 8.9 fl (7.5-11.1); MONO % 0.9 % (3.8-10.2); NEUT % 92.8 % (42.8-82.8); PLATELET COUNT 388 K/MM3 (134-434); RBC 4.76 M/mm3 (3.60-5.2); RDW 14.6 % (11.6-15.6); WHITE BLOOD COUNT 8.8 K/mm3 (4.0-10.0)
[2020-01-16 07:27] LABS: ALBUMIN 2.2 g/dl (3.4-5.0); BILIRUBIN,TOTAL 0.3 mg/dL (0.2-1); BLOOD UREA NITROGEN 28.8 mg/dL (7-18); CALCIUM 8.6 mg/dL (8.5-10.1); CREATININE 0.5 mg/dL (0.55-1.3); MAGNESIUM 2.3 mg/dL (1.8-2.4); PHOSPHOROUS 4.1 mg/dL (2.5-4.9); POTASSIUM 4.6 mmol/L (3.5-5.1); TOT PROT 6.6 g/dl (6.4-8.2)
[2020-01-16] MEDS ORDERED: methylPREDNISolone NA SUCC 40 MG/1 ML VIAL IVPUSH SCH ×2 (10:00)
[2020-01-16] MEDS: ENOXAPARIN NA (PORCINE) 60 MG/0.6 ML DISP.SYRIN SQ SCH (10:03)
[2020-01-16] MEDS: ZINC SULFATE 220 MG CAPSULE (FP) PO SCH (10:03)
[2020-01-16] MEDS: methylPREDNISolone NA SUCC 40 MG/1 ML VIAL IVPUSH SCH (10:03)
[2020-01-16] MEDS: ASCORBIC ACID 1,000 MG TABLET PO SCH (10:03)
[2020-01-16] MEDS: PANTOPRAZOLE SODIUM 40 MG VIAL IVPUSH SCH (10:30)
[2020-01-16 11:08] LABS: ANISOCYTOSIS 1+; MACROCYTOSIS 0; PLATELET ESTIMATE NORMAL
[2020-01-17] MEDS: ATORVASTATIN CA 40 MG TABLET (FP) PO SCH ×2 (00:02→21:41)
[2020-01-17] MEDS: CHLORHEXIDINE GLUCONATE 4% CLEANSER FOR DECOLONIZATION TP SCH ×2 (00:02→21:41)
[2020-01-17] MEDS: ENOXAPARIN NA (PORCINE) 60 MG/0.6 ML DISP.SYRIN SQ SCH ×3 (00:03→21:41)
[2020-01-17] MEDS: methylPREDNISolone NA SUCC 40 MG/1 ML VIAL IVPUSH SCH ×3 (00:03→21:42)
[2020-01-17] MEDS: ASCORBIC ACID 1,000 MG TABLET PO SCH ×3 (00:03→21:42)
[2020-01-17] MEDS: ZINC SULFATE 220 MG CAPSULE (FP) PO SCH ×3 (00:03→21:41)
[2020-01-17 08:28] LABS: BASO % 0.1 % (0-2.0); HEMATOCRIT 42.6 % (32.4-45.2); HEMOGLOBIN 13.5 GM/dL (10.7-15.3); LYMPH % 7.3 % (8-40); MCH 28.7 pg (25.7-33.7); MCHC 31.6 g/dl (32.0-36.0); MEAN CELL VOLUME 90.9 fl (80-96); MEAN PLT VOLUME 9.7 fl (7.5-11.1); MONO % 3.1 % (3.8-10.2); NEUT % 89.5 % (42.8-82.8); PLATELET COUNT 386 K/MM3 (134-434); RBC 4.69 M/mm3 (3.60-5.2); RDW 14.4 % (11.6-15.6); WHITE BLOOD COUNT 12.8 K/mm3 (4.0-10.0)
[2020-01-17 09:11] LABS: ALBUMIN 2.2 g/dl (3.4-5.0); BILIRUBIN,TOTAL 0.3 mg/dL (0.2-1); CALCIUM 8.2 mg/dL (8.5-10.1); CREATININE 0.5 mg/dL (0.55-1.3); MAGNESIUM 2.4 mg/dL (1.8-2.4); POTASSIUM 4.5 mmol/L (3.5-5.1); TOT PROT 6.6 g/dl (6.4-8.2)
[2020-01-17] MEDS: PANTOPRAZOLE SODIUM 40 MG VIAL IVPUSH SCH (09:27)
[2020-01-18 06:39] LABS: BASO % 0.3 % (0-2.0); HEMATOCRIT 40.6 % (32.4-45.2); HEMOGLOBIN 13.2 GM/dL (10.7-15.3); LYMPH % 5.4 % (8-40); MCH 29.3 pg (25.7-33.7); MCHC 32.5 g/dl (32.0-36.0); MEAN CELL VOLUME 89.9 fl (80-96); MEAN PLT VOLUME 9.3 fl (7.5-11.1); MONO % 2.5 % (3.8-10.2); NEUT % 91.8 % (42.8-82.8); PLATELET COUNT 350 K/MM3 (134-434); RBC 4.51 M/mm3 (3.60-5.2); RDW 14.5 % (11.6-15.6); WHITE BLOOD COUNT 10.3 K/mm3 (4.0-10.0)
[2020-01-18 07:42] LABS: ALBUMIN 2.4 g/dl (3.4-5.0); BILIRUBIN,TOTAL 0.4 mg/dL (0.2-1); CALCIUM 8.1 mg/dL (8.5-10.1); CREATININE 0.5 mg/dL (0.55-1.3); MAGNESIUM 2.4 mg/dL (1.8-2.4); POTASSIUM 4.2 mmol/L (3.5-5.1); TOT PROT 6.6 g/dl (6.4-8.2)
[2020-01-18] MEDS: PANTOPRAZOLE SODIUM 40 MG VIAL IVPUSH SCH (09:02)
[2020-01-18] MEDS: methylPREDNISolone NA SUCC 40 MG/1 ML VIAL IVPUSH SCH ×2 (09:06→22:35)
[2020-01-18] MEDS: ENOXAPARIN NA (PORCINE) 60 MG/0.6 ML DISP.SYRIN SQ SCH ×2 (09:06→22:34)
[2020-01-18] MEDS: ZINC SULFATE 220 MG CAPSULE (FP) PO SCH ×2 (09:09→22:35)
[2020-01-18] MEDS: ASCORBIC ACID 1,000 MG TABLET PO SCH ×2 (09:19→22:35)
[2020-01-18 10:20] LABS: ANISOCYTOSIS 1+; MACROCYTOSIS 0; PLATELET ESTIMATE NORMAL
[2020-01-18] MEDS ORDERED: ACETAMINOPHEN 650 MG/20.3 ML ORAL SOLUTION (CUPS) PO ONE (14:40)
[2020-01-18] MEDS ORDERED: PT OWN MED DRAWER 7, Y5N ONE (14:46)
[2020-01-18] MEDS: CHLORHEXIDINE GLUCONATE 4% CLEANSER FOR DECOLONIZATION TP SCH (22:33)
[2020-01-18] MEDS: ATORVASTATIN CA 40 MG TABLET (FP) PO SCH (22:34)
[2020-01-19 06:50] LABS: BASO % 0.4 % (0-2.0); EOS % 0.1 % (0-4.5); HEMOGLOBIN 12.8 GM/dL (10.7-15.3); LYMPH % 5.6 % (8-40); MCH 28.8 pg (25.7-33.7); MEAN PLT VOLUME 9.9 fl (7.5-11.1); MONO % 2.1 % (3.8-10.2); NEUT % 91.8 % (42.8-82.8); PLATELET COUNT 324 K/MM3 (134-434); RBC 4.44 M/mm3 (3.60-5.2); RDW 14.5 % (11.6-15.6)
[2020-01-19 07:43] LABS: ALBUMIN 2.4 g/dl (3.4-5.0); BILIRUBIN,TOTAL 0.8 mg/dL (0.2-1); BLOOD UREA NITROGEN 25.2 mg/dL (7-18); CALCIUM 7.9 mg/dL (8.5-10.1); CREATININE 0.4 mg/dL (0.55-1.3); MAGNESIUM 2.1 mg/dL (1.8-2.4); PHOSPHOROUS 3.2 mg/dL (2.5-4.9); POTASSIUM 4.5 mmol/L (3.5-5.1); TOT PROT 6.2 g/dl (6.4-8.2)
[2020-01-19] MEDS: ENOXAPARIN NA (PORCINE) 60 MG/0.6 ML DISP.SYRIN SQ SCH ×2 (10:35→23:12)
[2020-01-19] MEDS: ASCORBIC ACID 1,000 MG TABLET PO SCH ×2 (10:37→23:13)
[2020-01-19] MEDS: ZINC SULFATE 220 MG CAPSULE (FP) PO SCH ×2 (10:37→23:12)
[2020-01-19] MEDS: PANTOPRAZOLE SODIUM 40 MG VIAL IVPUSH SCH (10:41)
[2020-01-19] MEDS: methylPREDNISolone NA SUCC 40 MG/1 ML VIAL IVPUSH SCH ×2 (10:41→23:13)
[2020-01-19 10:52] LABS: ANISOCYTOSIS 0; MACROCYTOSIS 0; PLATELET ESTIMATE NORMAL
[2020-01-19] MEDS: CHLORHEXIDINE GLUCONATE 4% CLEANSER FOR DECOLONIZATION TP SCH (23:12)
[2020-01-19] MEDS: ATORVASTATIN CA 40 MG TABLET (FP) PO SCH (23:12)
[2020-01-19] MEDS: SENNOSIDES 8.6MG TABLET (FP) PO SCH (23:13)
[2020-01-20 06:54] LABS: BASO % 0.2 % (0-2.0); EOS % 0.1 % (0-4.5); HEMATOCRIT 40.1 % (32.4-45.2); MCH 29.1 pg (25.7-33.7); MCHC 32.4 g/dl (32.0-36.0); MEAN CELL VOLUME 89.6 fl (80-96); MEAN PLT VOLUME 9.7 fl (7.5-11.1); NEUT % 90.7 % (42.8-82.8); PLATELET COUNT 348 K/MM3 (134-434); RBC 4.47 M/mm3 (3.60-5.2); RDW 14.6 % (11.6-15.6); WHITE BLOOD COUNT 10.6 K/mm3 (4.0-10.0)
[2020-01-20 08:46] LABS: ALBUMIN 2.5 g/dl (3.4-5.0); BILIRUBIN,TOTAL 0.4 mg/dL (0.2-1); BLOOD UREA NITROGEN 23.1 mg/dL (7-18); CALCIUM 8.3 mg/dL (8.5-10.1); CREATININE 0.4 mg/dL (0.55-1.3); MAGNESIUM 2.2 mg/dL (1.8-2.4); PHOSPHOROUS 3.1 mg/dL (2.5-4.9); POTASSIUM 4.4 mmol/L (3.5-5.1); TOT PROT 6.4 g/dl (6.4-8.2)
[2020-01-20] MEDS: methylPREDNISolone NA SUCC 40 MG/1 ML VIAL IVPUSH SCH ×2 (09:41→21:55)
[2020-01-20] MEDS: PANTOPRAZOLE SODIUM 40 MG VIAL IVPUSH SCH (09:42)
[2020-01-20] MEDS: ZINC SULFATE 220 MG CAPSULE (FP) PO SCH ×2 (09:42→21:57)
[2020-01-20] MEDS: SENNOSIDES 8.6MG TABLET (FP) PO SCH ×2 (09:43→21:57)
[2020-01-20] MEDS: ASCORBIC ACID 1,000 MG TABLET PO SCH ×2 (09:43→21:58)
[2020-01-20] MEDS: ENOXAPARIN NA (PORCINE) 60 MG/0.6 ML DISP.SYRIN SQ SCH ×2 (09:44→21:57)
[2020-01-20] MEDS ORDERED: PT OWN MED DRAWER 7, Y5N ONE (19:27)
[2020-01-20] MEDS: ATORVASTATIN CA 40 MG TABLET (FP) PO SCH (21:57)
[2020-01-20] MEDS: CHLORHEXIDINE GLUCONATE 4% CLEANSER FOR DECOLONIZATION TP SCH (21:57)
[2020-01-21 07:15] LABS: HEMATOCRIT 41.4 % (32.4-45.2); HEMOGLOBIN 13.2 GM/dL (10.7-15.3); MCH 28.4 pg (25.7-33.7); MEAN CELL VOLUME 88.9 fl (80-96); MEAN PLT VOLUME 9.9 fl (7.5-11.1); PLATELET COUNT 321 K/MM3 (134-434); RBC 4.65 M/mm3 (3.60-5.2); RDW 14.6 % (11.6-15.6); WHITE BLOOD COUNT 10.7 K/mm3 (4.0-10.0)
[2020-01-21 07:42] LABS: BLOOD UREA NITROGEN 23.5 mg/dL (7-18); CALCIUM 8.4 mg/dL (8.5-10.1); CREATININE 0.4 mg/dL (0.55-1.3); MAGNESIUM 2.2 mg/dL (1.8-2.4); PHOSPHOROUS 3.3 mg/dL (2.5-4.9); POTASSIUM 4.5 mmol/L (3.5-5.1)
[2020-01-21] MEDS: ZINC SULFATE 220 MG CAPSULE (FP) PO SCH ×2 (09:13→22:38)
[2020-01-21] MEDS: ENOXAPARIN NA (PORCINE) 60 MG/0.6 ML DISP.SYRIN SQ SCH ×2 (09:13→22:37)
[2020-01-21] MEDS: SENNOSIDES 8.6MG TABLET (FP) PO SCH ×2 (09:14→22:38)
[2020-01-21] MEDS: methylPREDNISolone NA SUCC 40 MG/1 ML VIAL IVPUSH SCH ×2 (09:14→22:38)
[2020-01-21] MEDS: PANTOPRAZOLE SODIUM 40 MG VIAL IVPUSH SCH (09:14)
[2020-01-21] MEDS: ASCORBIC ACID 1,000 MG TABLET PO SCH ×2 (09:14→22:39)
[2020-01-21] MEDS ORDERED: guaiFENesin/D-M SUGAR-FREE/ACLHOL-FREE 118 ML BOTTLE PO PRN (13:48)
[2020-01-21] MEDS ORDERED: SODIUM CHLORIDE NASAL SPRAY 44 ML BOTTLE NS PRN (13:48)
[2020-01-21] MEDS ORDERED: ALBUTEROL SO4 HFA INHALER IH PRN (13:48)
[2020-01-21] MEDS: ATORVASTATIN CA 40 MG TABLET (FP) PO SCH (22:37)
[2020-01-21] MEDS: CHLORHEXIDINE GLUCONATE 4% CLEANSER FOR DECOLONIZATION TP SCH (22:37)
[2020-01-22 09:35] LABS: BASO % 0.6 % (0-2.0); HEMATOCRIT 40.2 % (32.4-45.2); HEMOGLOBIN 12.8 GM/dL (10.7-15.3); LYMPH % 6.2 % (8-40); MCH 28.7 pg (25.7-33.7); MCHC 31.9 g/dl (32.0-36.0); MEAN CELL VOLUME 89.9 fl (80-96); MEAN PLT VOLUME 9.8 fl (7.5-11.1); MONO % 1.5 % (3.8-10.2); NEUT % 91.7 % (42.8-82.8); PLATELET COUNT 328 K/MM3 (134-434); RBC 4.47 M/mm3 (3.60-5.2); RDW 14.6 % (11.6-15.6); WHITE BLOOD COUNT 12.9 K/mm3 (4.0-10.0)
[2020-01-22 10:09] LABS: ALBUMIN 2.5 g/dl (3.4-5.0); BILIRUBIN,TOTAL 0.4 mg/dL (0.2-1); BLOOD UREA NITROGEN 31.6 mg/dL (7-18); CALCIUM 8.4 mg/dL (8.5-10.1); CREATININE 0.6 mg/dL (0.55-1.3); MAGNESIUM 2.3 mg/dL (1.8-2.4); PHOSPHOROUS 3.8 mg/dL (2.5-4.9); POTASSIUM 4.7 mmol/L (3.5-5.1); TOT PROT 6.2 g/dl (6.4-8.2)
[2020-01-22] MEDS: ZINC SULFATE 220 MG CAPSULE (FP) PO SCH ×2 (10:39→23:18)
[2020-01-22] MEDS: PANTOPRAZOLE SODIUM 40 MG VIAL IVPUSH SCH (10:39)
[2020-01-22] MEDS: ENOXAPARIN NA (PORCINE) 60 MG/0.6 ML DISP.SYRIN SQ SCH ×2 (10:39→23:18)
[2020-01-22] MEDS: ASCORBIC ACID 1,000 MG TABLET PO SCH ×2 (10:40→23:18)
[2020-01-22] MEDS: methylPREDNISolone NA SUCC 40 MG/1 ML VIAL IVPUSH SCH ×2 (10:40→23:18)
[2020-01-22] MEDS: SENNOSIDES 8.6MG TABLET (FP) PO SCH ×2 (10:40→23:18)
[2020-01-22 11:25] LABS: ANISOCYTOSIS 0; MACROCYTOSIS 0; PLATELET ESTIMATE NORMAL
[2020-01-22] MEDS ORDERED: PT OWN MED DRAWER 7, Y5N ONE (17:58)
[2020-01-22] MEDS: ATORVASTATIN CA 40 MG TABLET (FP) PO SCH (23:17)
[2020-01-22] MEDS: CHLORHEXIDINE GLUCONATE 4% CLEANSER FOR DECOLONIZATION TP SCH (23:18)
[2020-01-23] MEDS: ACETAMINOPHEN 500 MG TABLET (FP) PO PRN (02:10)
[2020-01-23 08:29] LABS: BASO % 0.1 % (0-2.0); HEMATOCRIT 39.4 % (32.4-45.2); HEMOGLOBIN 12.4 GM/dL (10.7-15.3); LYMPH % 2.9 % (8-40); MCH 28.4 pg (25.7-33.7); MCHC 31.5 g/dl (32.0-36.0); MEAN CELL VOLUME 90.1 fl (80-96); MEAN PLT VOLUME 10.1 fl (7.5-11.1); MONO % 0.9 % (3.8-10.2); NEUT % 96.1 % (42.8-82.8); PLATELET COUNT 307 K/MM3 (134-434); RBC 4.37 M/mm3 (3.60-5.2); RDW 14.4 % (11.6-15.6); WHITE BLOOD COUNT 12.3 K/mm3 (4.0-10.0)
[2020-01-23 09:15] LABS: ALBUMIN 2.6 g/dl (3.4-5.0); BILIRUBIN,TOTAL 0.4 mg/dL (0.2-1); BLOOD UREA NITROGEN 31.2 mg/dL (7-18); CALCIUM 8.5 mg/dL (8.5-10.1); CREATININE 0.5 mg/dL (0.55-1.3); MAGNESIUM 2.3 mg/dL (1.8-2.4); PHOSPHOROUS 3.4 mg/dL (2.5-4.9); POTASSIUM 4.8 mmol/L (3.5-5.1); TOT PROT 6.2 g/dl (6.4-8.2)
[2020-01-23] MEDS: methylPREDNISolone NA SUCC 40 MG/1 ML VIAL IVPUSH SCH (09:24)
[2020-01-23] MEDS: PANTOPRAZOLE SODIUM 40 MG VIAL IVPUSH SCH (09:25)
[2020-01-23] MEDS: SENNOSIDES 8.6MG TABLET (FP) PO SCH ×2 (09:28→22:10)
[2020-01-23] MEDS: ENOXAPARIN NA (PORCINE) 60 MG/0.6 ML DISP.SYRIN SQ SCH ×2 (09:28→22:10)
[2020-01-23] MEDS: ASCORBIC ACID 1,000 MG TABLET PO SCH ×2 (09:28→22:10)
[2020-01-23] MEDS: ZINC SULFATE 220 MG CAPSULE (FP) PO SCH ×2 (09:28→22:11)
[2020-01-23 11:19] LABS: ANISOCYTOSIS 0; MACROCYTOSIS 0; PLATELET ESTIMATE NORMAL
[2020-01-23] MEDS: amLODIPine BESYLATE 5 MG TABLET (FP) PO SCH (12:35)
[2020-01-23] MEDS ORDERED: LORazepam 2 MG/ML SDV VIAL IVPUSH ONE (13:53)
[2020-01-23] MEDS ORDERED: LORazepam 2 MG/ML SDV VIAL ONE (14:05)
[2020-01-23] MEDS ORDERED: methylPREDNISolone NA SUCC 40 MG/1 ML VIAL IVPB SCH (22:00)
[2020-01-23] MEDS: ATORVASTATIN CA 10 MG TABLET (FP) PO SCH (22:09)
[2020-01-23] MEDS: methylPREDNISolone NA SUCC 40 MG/1 ML VIAL IVPB SCH (22:10)
[2020-01-23] MEDS: CHLORHEXIDINE GLUCONATE 4% CLEANSER FOR DECOLONIZATION TP SCH (23:51)
[2020-01-24] MEDS ORDERED: LYTES/YERBA SANTA 60 ML SPRAY MM ONE (02:05)
[2020-01-24 08:27] LABS: HEMATOCRIT 36.1 % (32.4-45.2); HEMOGLOBIN 11.5 GM/dL (10.7-15.3); MCH 28.6 pg (25.7-33.7); MCHC 31.8 g/dl (32.0-36.0); MEAN PLT VOLUME 9.9 fl (7.5-11.1); PLATELET COUNT 276 K/MM3 (134-434); RBC 4.01 M/mm3 (3.60-5.2); RDW 14.4 % (11.6-15.6); WHITE BLOOD COUNT 11.6 K/mm3 (4.0-10.0)
[2020-01-24 09:06] LABS: ALBUMIN 2.5 g/dl (3.4-5.0); ALK PHOS 107 U/L (45-117); ANION GAP 5 MMOL/L (8-16); BILIRUBIN,TOTAL 0.6 mg/dL (0.2-1); CALCIUM 8.3 mg/dL (8.5-10.1); CHLORIDE 107 mmol/L (98-107); CO2 37 mmol/L (21-32); CREATININE 0.5 mg/dL (0.55-1.3); GLUCOSE,RANDOM 142 mg/dL (74-106); LDH 429 U/L (84-246); MAGNESIUM 2.3 mg/dL (1.8-2.4); PHOSPHOROUS 3.6 mg/dL (2.5-4.9); POTASSIUM 4.5 mmol/L (3.5-5.1); SGOT/AST 42 U/L (15-37); SGPT/ALT 63 U/L (13-61); SODIUM 148 mmol/L (136-145); TOT PROT 5.8 g/dl (6.4-8.2)
[2020-01-24] MEDS: ENOXAPARIN NA (PORCINE) 60 MG/0.6 ML DISP.SYRIN SQ SCH ×2 (10:44→22:52)
[2020-01-24] MEDS: methylPREDNISolone NA SUCC 40 MG/1 ML VIAL IVPB SCH ×2 (10:44→22:51)
[2020-01-24] MEDS: ZINC SULFATE 220 MG CAPSULE (FP) PO SCH ×2 (10:45→22:51)
[2020-01-24] MEDS: PANTOPRAZOLE SODIUM 40 MG VIAL IVPUSH SCH (10:45)
[2020-01-24] MEDS: amLODIPine BESYLATE 5 MG TABLET (FP) PO SCH (10:45)
[2020-01-24] MEDS: ASCORBIC ACID 1,000 MG TABLET PO SCH ×2 (10:45→22:53)
[2020-01-24] MEDS: SENNOSIDES 8.6MG TABLET (FP) PO SCH ×2 (10:45→22:53)
[2020-01-24] MEDS ORDERED: ALPRAZolam 0.25 MG TABLET PO PRN (11:37)
[2020-01-24] MEDS: AMINO ACIDS/PROTEIN HYDROLYS 30 ML LIQUID.PKT PO SCH (16:42)
[2020-01-24] MEDS: ATORVASTATIN CA 10 MG TABLET (FP) PO SCH (22:51)
[2020-01-25 08:13] LABS: BASO % 0.2 % (0-2.0); HEMATOCRIT 36.5 % (32.4-45.2); HEMOGLOBIN 11.6 GM/dL (10.7-15.3); LYMPH % 5.1 % (8-40); MCH 28.5 pg (25.7-33.7); MCHC 31.9 g/dl (32.0-36.0); MEAN CELL VOLUME 89.4 fl (80-96); MEAN PLT VOLUME 9.9 fl (7.5-11.1); MONO % 2.8 % (3.8-10.2); NEUT % 91.9 % (42.8-82.8); PLATELET COUNT 282 K/MM3 (134-434); RBC 4.09 M/mm3 (3.60-5.2)
[2020-01-25 08:34] LABS: ALBUMIN 2.6 g/dl (3.4-5.0); ALK PHOS 107 U/L (45-117); ANION GAP 5 MMOL/L (8-16); BILIRUBIN,TOTAL 0.4 mg/dL (0.2-1); BLOOD UREA NITROGEN 27.4 mg/dL (7-18); CALCIUM 8.3 mg/dL (8.5-10.1); CHLORIDE 105 mmol/L (98-107); CO2 35 mmol/L (21-32); CREATININE 0.5 mg/dL (0.55-1.3); GLUCOSE,RANDOM 127 mg/dL (74-106); LDH 440 U/L (84-246); MAGNESIUM 2.3 mg/dL (1.8-2.4); PHOSPHOROUS 3.5 mg/dL (2.5-4.9); POTASSIUM 4.3 mmol/L (3.5-5.1); SGOT/AST 44 U/L (15-37); SGPT/ALT 67 U/L (13-61); SODIUM 145 mmol/L (136-145); TOT PROT 5.9 g/dl (6.4-8.2)
[2020-01-25] MEDS: AMINO ACIDS/PROTEIN HYDROLYS 30 ML LIQUID.PKT PO SCH ×2 (08:45→18:06)
[2020-01-25] MEDS ORDERED: ALPRAZolam 0.25 MG TABLET PO PRN (10:40)
[2020-01-25 10:43] LABS: ANISOCYTOSIS 0; MACROCYTOSIS 0; PLATELET ESTIMATE NORMAL
[2020-01-25] MEDS: PANTOPRAZOLE SODIUM 40 MG VIAL IVPUSH SCH (10:46)
[2020-01-25] MEDS: ASCORBIC ACID 1,000 MG TABLET PO SCH ×2 (10:46→22:08)
[2020-01-25] MEDS: ENOXAPARIN NA (PORCINE) 60 MG/0.6 ML DISP.SYRIN SQ SCH ×2 (10:46→22:07)
[2020-01-25] MEDS: amLODIPine BESYLATE 5 MG TABLET (FP) PO SCH (10:46)
[2020-01-25] MEDS: ZINC SULFATE 220 MG CAPSULE (FP) PO SCH ×2 (10:46→22:07)
[2020-01-25] MEDS: SENNOSIDES 8.6MG TABLET (FP) PO SCH ×2 (10:46→22:07)
[2020-01-25] MEDS: methylPREDNISolone NA SUCC 40 MG/1 ML VIAL IVPB SCH ×2 (10:46→22:08)
[2020-01-25] MEDS ORDERED: PT OWN MED DRAWER 7, Y5N ONE (15:18)
[2020-01-25] MEDS: ATORVASTATIN CA 10 MG TABLET (FP) PO SCH (22:07)
[2020-01-26 08:25] LABS: BASO % 0.2 % (0-2.0); EOS % 2.4 % (0-4.5); HEMOGLOBIN 11.2 GM/dL (10.7-15.3); LYMPH % 6.6 % (8-40); MCH 28.9 pg (25.7-33.7); MEAN CELL VOLUME 90.4 fl (80-96); MEAN PLT VOLUME 9.8 fl (7.5-11.1); MONO % 2.5 % (3.8-10.2); NEUT % 88.3 % (42.8-82.8); PLATELET COUNT 267 K/MM3 (134-434); RBC 3.87 M/mm3 (3.60-5.2); RDW 14.7 % (11.6-15.6); WHITE BLOOD COUNT 12.2 K/mm3 (4.0-10.0)
[2020-01-26 08:41] LABS: ALBUMIN 2.6 g/dl (3.4-5.0); BILIRUBIN,TOTAL 0.4 mg/dL (0.2-1); BLOOD UREA NITROGEN 24.4 mg/dL (7-18); CALCIUM 8.2 mg/dL (8.5-10.1); CREATININE 0.4 mg/dL (0.55-1.3); MAGNESIUM 2.1 mg/dL (1.8-2.4); PHOSPHOROUS 3.3 mg/dL (2.5-4.9); POTASSIUM 3.9 mmol/L (3.5-5.1); TOT PROT 5.9 g/dl (6.4-8.2)
[2020-01-26] MEDS: AMINO ACIDS/PROTEIN HYDROLYS 30 ML LIQUID.PKT PO SCH ×2 (09:49→17:05)
[2020-01-26] MEDS: SENNOSIDES 8.6MG TABLET (FP) PO SCH ×2 (09:49→21:42)
[2020-01-26] MEDS: methylPREDNISolone NA SUCC 40 MG/1 ML VIAL IVPB SCH ×2 (09:49→21:40)
[2020-01-26] MEDS: PANTOPRAZOLE SODIUM 40 MG VIAL IVPUSH SCH (09:49)
[2020-01-26] MEDS: amLODIPine BESYLATE 5 MG TABLET (FP) PO SCH (09:49)
[2020-01-26] MEDS: ZINC SULFATE 220 MG CAPSULE (FP) PO SCH ×2 (09:49→21:41)
[2020-01-26] MEDS: ENOXAPARIN NA (PORCINE) 60 MG/0.6 ML DISP.SYRIN SQ SCH ×2 (09:49→21:41)
[2020-01-26] MEDS: ASCORBIC ACID 1,000 MG TABLET PO SCH ×2 (09:49→21:41)
[2020-01-26] MEDS ORDERED: SODIUM CHLORIDE 0.45% 1,000 ML IV SCH (14:30)
[2020-01-26] MEDS: CHLORHEXIDINE GLUCONATE 4% CLEANSER FOR DECOLONIZATION TP SCH (21:41)
[2020-01-26] MEDS: ATORVASTATIN CA 10 MG TABLET (FP) PO SCH (21:41)
[2020-01-27 08:06] LABS: BASO % 0.1 % (0-2.0); HEMATOCRIT 34.5 % (32.4-45.2); HEMOGLOBIN 11.1 GM/dL (10.7-15.3); LYMPH % 3.1 % (8-40); MCH 29.1 pg (25.7-33.7); MCHC 32.1 g/dl (32.0-36.0); MEAN CELL VOLUME 90.6 fl (80-96); MEAN PLT VOLUME 9.5 fl (7.5-11.1); MONO % 1.1 % (3.8-10.2); NEUT % 95.7 % (42.8-82.8); PLATELET COUNT 264 K/MM3 (134-434); RBC 3.81 M/mm3 (3.60-5.2); RDW 14.7 % (11.6-15.6); WHITE BLOOD COUNT 9.8 K/mm3 (4.0-10.0)
[2020-01-27] MEDS ORDERED: methylPREDNISolone NA SUCC 40 MG/1 ML VIAL IVPUSH SCH (09:02)
[2020-01-27 09:27] LABS: ARTERIAL BLD GAS O2 SATURATION 71.4 % (95-98); ARTERIAL BLOOD GAS BASE EXCESS 4.8 mmol/L (-2-2); ARTERIAL BLOOD GAS pH 7.24 (7.35-7.45)
[2020-01-27 09:29] LABS: ARTERIAL BLOOD GAS PO2 < 49 mmHg (80-100)
[2020-01-27 09:54] LABS: ANISOCYTOSIS 0; MACROCYTOSIS 0; PLATELET ESTIMATE NORMAL
[2020-01-27 10:21] LABS: ALBUMIN 2.7 g/dl (3.4-5.0); BILIRUBIN,TOTAL 0.4 mg/dL (0.2-1); BLOOD UREA NITROGEN 24.5 mg/dL (7-18); CALCIUM 8.2 mg/dL (8.5-10.1); CREATININE 0.4 mg/dL (0.55-1.3); MAGNESIUM 2.4 mg/dL (1.8-2.4); PHOSPHOROUS 4.8 mg/dL (2.5-4.9); POTASSIUM 4.4 mmol/L (3.5-5.1); TOT PROT 6.2 g/dl (6.4-8.2)
[2020-01-27] MEDS: ENOXAPARIN NA (PORCINE) 60 MG/0.6 ML DISP.SYRIN SQ SCH ×2 (11:42→21:50)
[2020-01-27] MEDS: methylPREDNISolone NA SUCC 40 MG/1 ML VIAL IVPUSH SCH ×2 (11:42→21:50)
[2020-01-27] MEDS: PANTOPRAZOLE SODIUM 40 MG VIAL IVPUSH SCH (11:42)
[2020-01-27] MEDS: ASCORBIC ACID 1,000 MG TABLET PO SCH ×2 (11:43→21:50)
[2020-01-27] MEDS: ZINC SULFATE 220 MG CAPSULE (FP) PO SCH ×2 (11:43→21:50)
[2020-01-27] MEDS: amLODIPine BESYLATE 5 MG TABLET (FP) PO SCH (11:43)
[2020-01-27] MEDS: AMINO ACIDS/PROTEIN HYDROLYS 30 ML LIQUID.PKT PO SCH ×2 (11:43→17:31)
[2020-01-27] MEDS: SENNOSIDES 8.6MG TABLET (FP) PO SCH ×2 (11:43→21:50)
[2020-01-27 14:52] LABS: ARTERIAL BLOOD GAS BASE EXCESS 3.9 mmol/L (-2-2); ARTERIAL BLOOD GAS PO2 92.8 mmHg (80-100); ARTERIAL BLOOD GAS pH 7.23 (7.35-7.45)
[2020-01-27 14:55] LABS: ARTERIAL BLOOD GAS PCO2 83.1 mmHg (35-45)
[2020-01-27] MEDS: CHLORHEXIDINE GLUCONATE 4% CLEANSER FOR DECOLONIZATION TP SCH (21:49)
[2020-01-27] MEDS: ATORVASTATIN CA 10 MG TABLET (FP) PO SCH (21:50)
[2020-01-28 07:02] LABS: ARTERIAL BLD GAS O2 SATURATION 92.6 % (95-98); ARTERIAL BLOOD GAS BASE EXCESS 8.3 mmol/L (-2-2); ARTERIAL BLOOD GAS PO2 69.9 mmHg (80-100); ARTERIAL BLOOD GAS pH 7.33 (7.35-7.45)
[2020-01-28 07:09] LABS: BASO % 0.1 % (0-2.0); HEMATOCRIT 33.7 % (32.4-45.2); HEMOGLOBIN 10.9 GM/dL (10.7-15.3); LYMPH % 5.4 % (8-40); MCH 29.4 pg (25.7-33.7); MCHC 32.4 g/dl (32.0-36.0); MEAN CELL VOLUME 90.9 fl (80-96); MEAN PLT VOLUME 9.4 fl (7.5-11.1); MONO % 2.7 % (3.8-10.2); NEUT % 91.8 % (42.8-82.8); PLATELET COUNT 271 K/MM3 (134-434); RBC 3.71 M/mm3 (3.60-5.2); RDW 15.1 % (11.6-15.6)
[2020-01-28 07:23] LABS: ALLENS TEST POSITIVE
[2020-01-28 07:26] LABS: ARTERIAL BLOOD GAS PCO2 71.4 mmHg (35-45)
[2020-01-28 07:49] LABS: ALBUMIN 2.7 g/dl (3.4-5.0); BILIRUBIN,TOTAL 0.4 mg/dL (0.2-1); BLOOD UREA NITROGEN 29.9 mg/dL (7-18); CALCIUM 8.3 mg/dL (8.5-10.1); CREATININE 0.4 mg/dL (0.55-1.3); MAGNESIUM 2.3 mg/dL (1.8-2.4); PHOSPHOROUS 3.8 mg/dL (2.5-4.9); POTASSIUM 4.5 mmol/L (3.5-5.1); TOT PROT 6.1 g/dl (6.4-8.2)
[2020-01-28] MEDS: AMINO ACIDS/PROTEIN HYDROLYS 30 ML LIQUID.PKT PO SCH ×2 (08:38→17:18)
[2020-01-28] MEDS: ENOXAPARIN NA (PORCINE) 60 MG/0.6 ML DISP.SYRIN SQ SCH ×2 (09:46→21:12)
[2020-01-28] MEDS: methylPREDNISolone NA SUCC 40 MG/1 ML VIAL IVPUSH SCH ×2 (09:46→21:13)
[2020-01-28] MEDS: PANTOPRAZOLE SODIUM 40 MG VIAL IVPUSH SCH (09:47)
[2020-01-28] MEDS: ZINC SULFATE 220 MG CAPSULE (FP) PO SCH ×2 (09:59→21:12)
[2020-01-28] MEDS: amLODIPine BESYLATE 5 MG TABLET (FP) PO SCH (09:59)
[2020-01-28] MEDS: ASCORBIC ACID 1,000 MG TABLET PO SCH ×2 (09:59→21:13)
[2020-01-28] MEDS: SENNOSIDES 8.6MG TABLET (FP) PO SCH ×2 (09:59→21:12)
[2020-01-28 10:08] LABS: ANISOCYTOSIS 1+; MACROCYTOSIS 0; PLATELET ESTIMATE NORMAL
[2020-01-28] MEDS ORDERED: AMINO ACIDS 4.25%/D5W 1,000 ML IV SCH (16:45)
[2020-01-28] MEDS: CHLORHEXIDINE GLUCONATE 4% CLEANSER FOR DECOLONIZATION TP SCH (21:12)
[2020-01-28] MEDS: ATORVASTATIN CA 10 MG TABLET (FP) PO SCH (21:12)
[2020-01-29 07:12] LABS: ARTERIAL BLOOD GAS PCO2 58.4 mmHg (35-45)
[2020-01-29 07:13] LABS: ALLENS TEST POSITIVE; ARTERIAL BLD GAS O2 SATURATION 98.8 % (95-98); ARTERIAL BLOOD GAS BASE EXCESS 8.7 mmol/L (-2-2); ARTERIAL BLOOD GAS PO2 144 mmHg (80-100)
[2020-01-29 07:36] LABS: BASO % 0.2 % (0-2.0); HEMOGLOBIN 10.2 GM/dL (10.7-15.3); LYMPH % 3.7 % (8-40); MCH 29.8 pg (25.7-33.7); MCHC 32.9 g/dl (32.0-36.0); MEAN CELL VOLUME 90.4 fl (80-96); MEAN PLT VOLUME 9.7 fl (7.5-11.1); MONO % 2.2 % (3.8-10.2); NEUT % 93.9 % (42.8-82.8); PLATELET COUNT 272 K/MM3 (134-434); RBC 3.43 M/mm3 (3.60-5.2); RDW 14.9 % (11.6-15.6); WHITE BLOOD COUNT 8.7 K/mm3 (4.0-10.0)
[2020-01-29 08:28] LABS: ALBUMIN 2.5 g/dl (3.4-5.0); BILIRUBIN,TOTAL 0.3 mg/dL (0.2-1); BLOOD UREA NITROGEN 34.3 mg/dL (7-18); CREATININE 0.4 mg/dL (0.55-1.3); MAGNESIUM 2.1 mg/dL (1.8-2.4); PHOSPHOROUS 2.6 mg/dL (2.5-4.9); POTASSIUM 4.1 mmol/L (3.5-5.1); TOT PROT 5.7 g/dl (6.4-8.2)
[2020-01-29] MEDS: AMINO ACIDS/PROTEIN HYDROLYS 30 ML LIQUID.PKT PO SCH (08:49)
[2020-01-29] MEDS: ENOXAPARIN NA (PORCINE) 60 MG/0.6 ML DISP.SYRIN SQ SCH ×2 (10:04→21:15)
[2020-01-29] MEDS: PANTOPRAZOLE SODIUM 40 MG VIAL IVPUSH SCH (10:05)
[2020-01-29] MEDS: methylPREDNISolone NA SUCC 40 MG/1 ML VIAL IVPUSH SCH ×2 (10:05→21:15)
[2020-01-29] MEDS: ZINC SULFATE 220 MG CAPSULE (FP) PO SCH ×2 (10:27→21:15)
[2020-01-29] MEDS: SENNOSIDES 8.6MG TABLET (FP) PO SCH ×2 (10:27→21:16)
[2020-01-29] MEDS: ASCORBIC ACID 1,000 MG TABLET PO SCH ×2 (10:27→21:16)
[2020-01-29] MEDS: amLODIPine BESYLATE 5 MG TABLET (FP) PO SCH (10:27)
[2020-01-29 11:46] LABS: ANISOCYTOSIS 1+; MACROCYTOSIS 0; OVALOCYTE 1+; PLATELET ESTIMATE NORMAL; TOXIC GRANULATION 1+
[2020-01-29] MEDS: ATORVASTATIN CA 10 MG TABLET (FP) PO SCH (21:15)
[2020-01-29] MEDS: CHLORHEXIDINE GLUCONATE 4% CLEANSER FOR DECOLONIZATION TP SCH (21:16)
[2020-01-30] MEDS: ACETAMINOPHEN 325 MG TABLET (FP) PO PRN (06:08)
[2020-01-30 06:49] LABS: ARTERIAL BLOOD GAS BASE EXCESS 10.2 mmol/L (-2-2); ARTERIAL BLOOD GAS PCO2 54.8 mmHg (35-45); ARTERIAL BLOOD GAS PO2 80.5 mmHg (80-100); ARTERIAL BLOOD GAS pH 7.43 (7.35-7.45)
[2020-01-30 06:50] LABS: ALLENS TEST POSITIVE
[2020-01-30 07:59] LABS: BASO % 0.2 % (0-2.0); HEMATOCRIT 32.8 % (32.4-45.2); HEMOGLOBIN 10.6 GM/dL (10.7-15.3); LYMPH % 4.4 % (8-40); MCH 28.9 pg (25.7-33.7); MCHC 32.3 g/dl (32.0-36.0); MEAN CELL VOLUME 89.6 fl (80-96); MEAN PLT VOLUME 9.7 fl (7.5-11.1); NEUT % 93.4 % (42.8-82.8); PLATELET COUNT 297 K/MM3 (134-434); RBC 3.66 M/mm3 (3.60-5.2); RDW 15.2 % (11.6-15.6); WHITE BLOOD COUNT 9.4 K/mm3 (4.0-10.0)
[2020-01-30 08:41] LABS: ALBUMIN 2.7 g/dl (3.4-5.0); BILIRUBIN,TOTAL 0.8 mg/dL (0.2-1); BLOOD UREA NITROGEN 26.2 mg/dL (7-18); CALCIUM 8.4 mg/dL (8.5-10.1); CREATININE 0.4 mg/dL (0.55-1.3); MAGNESIUM 2.1 mg/dL (1.8-2.4); POTASSIUM 4.1 mmol/L (3.5-5.1)
[2020-01-30] MEDS: ENOXAPARIN NA (PORCINE) 60 MG/0.6 ML DISP.SYRIN SQ SCH ×2 (10:37→21:42)
[2020-01-30] MEDS: amLODIPine BESYLATE 5 MG TABLET (FP) PO SCH (10:38)
[2020-01-30] MEDS: ZINC SULFATE 220 MG CAPSULE (FP) PO SCH ×2 (10:38→21:42)
[2020-01-30] MEDS: SENNOSIDES 8.6MG TABLET (FP) PO SCH ×2 (10:39→21:42)
[2020-01-30] MEDS: ASCORBIC ACID 1,000 MG TABLET PO SCH ×2 (10:39→21:42)
[2020-01-30] MEDS: methylPREDNISolone NA SUCC 40 MG/1 ML VIAL IVPUSH SCH ×2 (10:39→23:19)
[2020-01-30 10:50] LABS: ANISOCYTOSIS 0; MACROCYTOSIS 0; PLATELET ESTIMATE NORMAL
[2020-01-30] MEDS: PANTOPRAZOLE SODIUM 40 MG VIAL IVPUSH SCH (11:38)
[2020-01-30] MEDS: MORPHINE SULFATE 2 MG/ML VIAL IVPUSH PRN (11:38)
[2020-01-30] MEDS: ACETAMINOPHEN 500 MG TABLET (FP) PO PRN (14:59)
[2020-01-30] MEDS: ATORVASTATIN CA 10 MG TABLET (FP) PO SCH (21:42)
[2020-01-30] MEDS: CHLORHEXIDINE GLUCONATE 4% CLEANSER FOR DECOLONIZATION TP SCH (21:42)
[2020-01-30] MEDS ORDERED: methylPREDNISolone NA SUCC 40 MG/1 ML VIAL IVPUSH SCH (22:00)
[2020-01-31] MEDS: MORPHINE SULFATE 2 MG/ML VIAL IVPUSH PRN (00:28)
[2020-01-31 07:12] LABS: HEMATOCRIT 28.4 % (32.4-45.2); HEMOGLOBIN 9.5 GM/dL (10.7-15.3); MCH 30.1 pg (25.7-33.7); MCHC 33.5 g/dl (32.0-36.0); MEAN CELL VOLUME 89.7 fl (80-96); MEAN PLT VOLUME 9.2 fl (7.5-11.1); PLATELET COUNT 280 K/MM3 (134-434); RBC 3.16 M/mm3 (3.60-5.2); RDW 15.2 % (11.6-15.6); WHITE BLOOD COUNT 8.6 K/mm3 (4.0-10.0)
[2020-01-31 07:57] LABS: BLOOD UREA NITROGEN 28.2 mg/dL (7-18); CREATININE 0.4 mg/dL (0.55-1.3); MAGNESIUM 2.1 mg/dL (1.8-2.4); PHOSPHOROUS 2.3 mg/dL (2.5-4.9); POTASSIUM 4.1 mmol/L (3.5-5.1)
[2020-01-31] MEDS: PANTOPRAZOLE SODIUM 40 MG VIAL IVPUSH SCH (09:15)
[2020-01-31] MEDS: SENNOSIDES 8.6MG TABLET (FP) PO SCH ×2 (09:16→21:29)
[2020-01-31] MEDS: ZINC SULFATE 220 MG CAPSULE (FP) PO SCH ×2 (09:16→21:29)
[2020-01-31] MEDS: ENOXAPARIN NA (PORCINE) 60 MG/0.6 ML DISP.SYRIN SQ SCH ×2 (09:16→21:29)
[2020-01-31] MEDS: amLODIPine BESYLATE 5 MG TABLET (FP) PO SCH (09:16)
[2020-01-31] MEDS: ASCORBIC ACID 1,000 MG TABLET PO SCH ×2 (09:16→21:30)
[2020-01-31] MEDS: methylPREDNISolone NA SUCC 40 MG/1 ML VIAL IVPUSH SCH ×2 (09:16→21:30)
[2020-01-31] MEDS ORDERED: POLYETHYLENE GLYCOL 3350 119 GM BTL PO ONE (19:29)
[2020-01-31] MEDS: CHLORHEXIDINE GLUCONATE 4% CLEANSER FOR DECOLONIZATION TP SCH (21:29)
[2020-01-31] MEDS: ATORVASTATIN CA 10 MG TABLET (FP) PO SCH (21:29)
[2020-02-01 06:58] LABS: HEMATOCRIT 29.4 % (32.4-45.2); HEMOGLOBIN 9.5 GM/dL (10.7-15.3); MCH 29.1 pg (25.7-33.7); MCHC 32.2 g/dl (32.0-36.0); MEAN CELL VOLUME 90.4 fl (80-96); MEAN PLT VOLUME 9.1 fl (7.5-11.1); PLATELET COUNT 282 K/MM3 (134-434); RBC 3.25 M/mm3 (3.60-5.2); RDW 15.4 % (11.6-15.6)
[2020-02-01 07:26] LABS: CALCIUM 8.2 mg/dL (8.5-10.1); CREATININE 0.3 mg/dL (0.55-1.3); MAGNESIUM 2.1 mg/dL (1.8-2.4); PHOSPHOROUS 3.4 mg/dL (2.5-4.9); POTASSIUM 4.1 mmol/L (3.5-5.1)
[2020-02-01] MEDS: POLYETHYLENE GLYCOL 3350 119 GM BTL PO SCH (10:13)
[2020-02-01] MEDS: ENOXAPARIN NA (PORCINE) 60 MG/0.6 ML DISP.SYRIN SQ SCH ×2 (10:13→21:28)
[2020-02-01] MEDS: PANTOPRAZOLE SODIUM 40 MG VIAL IVPUSH SCH (10:14)
[2020-02-01] MEDS: methylPREDNISolone NA SUCC 40 MG/1 ML VIAL IVPUSH SCH ×2 (10:14→21:27)
[2020-02-01] MEDS: ASCORBIC ACID 1,000 MG TABLET PO SCH ×2 (10:15→21:29)
[2020-02-01] MEDS: amLODIPine BESYLATE 5 MG TABLET (FP) PO SCH (10:16)
[2020-02-01] MEDS: SENNOSIDES 8.6MG TABLET (FP) PO SCH ×2 (10:16→21:29)
[2020-02-01] MEDS: ZINC SULFATE 220 MG CAPSULE (FP) PO SCH ×2 (10:16→21:28)
[2020-02-01] MEDS: ATORVASTATIN CA 10 MG TABLET (FP) PO SCH (21:28)
[2020-02-01] MEDS: CHLORHEXIDINE GLUCONATE 4% CLEANSER FOR DECOLONIZATION TP SCH (21:29)
[2020-02-02 06:48] LABS: BASO % 0.3 % (0-2.0); EOS % 0.4 % (0-4.5); HEMATOCRIT 27.7 % (32.4-45.2); HEMOGLOBIN 9.1 GM/dL (10.7-15.3); LYMPH % 7.4 % (8-40); MCH 29.8 pg (25.7-33.7); MCHC 32.9 g/dl (32.0-36.0); MEAN CELL VOLUME 90.6 fl (80-96); MEAN PLT VOLUME 9.3 fl (7.5-11.1); MONO % 1.1 % (3.8-10.2); NEUT % 90.8 % (42.8-82.8); PLATELET COUNT 296 K/MM3 (134-434); RBC 3.06 M/mm3 (3.60-5.2); RDW 16.1 % (11.6-15.6)
[2020-02-02 07:17] LABS: ALBUMIN 2.5 g/dl (3.4-5.0); BILIRUBIN,TOTAL 0.5 mg/dL (0.2-1); BLOOD UREA NITROGEN 22.9 mg/dL (7-18); CALCIUM 8.3 mg/dL (8.5-10.1); CREATININE 0.3 mg/dL (0.55-1.3); MAGNESIUM 2.3 mg/dL (1.8-2.4); PHOSPHOROUS 3.6 mg/dL (2.5-4.9); POTASSIUM 4.4 mmol/L (3.5-5.1); TOT PROT 5.5 g/dl (6.4-8.2)
[2020-02-02] MEDS: ENOXAPARIN NA (PORCINE) 60 MG/0.6 ML DISP.SYRIN SQ SCH ×2 (10:23→22:50)
[2020-02-02] MEDS: POLYETHYLENE GLYCOL 3350 119 GM BTL PO SCH (10:23)
[2020-02-02] MEDS: ASCORBIC ACID 1,000 MG TABLET PO SCH ×2 (10:24→22:50)
[2020-02-02] MEDS: PANTOPRAZOLE SODIUM 40 MG VIAL IVPUSH SCH (10:24)
[2020-02-02] MEDS: ZINC SULFATE 220 MG CAPSULE (FP) PO SCH ×2 (10:24→22:50)
[2020-02-02] MEDS: amLODIPine BESYLATE 5 MG TABLET (FP) PO SCH (10:25)
[2020-02-02] MEDS: SENNOSIDES 8.6MG TABLET (FP) PO SCH ×2 (10:25→23:43)
[2020-02-02] MEDS: ATORVASTATIN CA 10 MG TABLET (FP) PO SCH (22:40)
[2020-02-02] MEDS: CHLORHEXIDINE GLUCONATE 4% CLEANSER FOR DECOLONIZATION TP SCH (22:40)
[2020-02-03 06:49] LABS: BASO % 0.2 % (0-2.0); HEMATOCRIT 26.6 % (32.4-45.2); HEMOGLOBIN 8.8 GM/dL (10.7-15.3); LYMPH % 9.2 % (8-40); MCH 29.8 pg (25.7-33.7); MCHC 32.9 g/dl (32.0-36.0); MEAN CELL VOLUME 90.4 fl (80-96); MEAN PLT VOLUME 9.1 fl (7.5-11.1); MONO % 2.1 % (3.8-10.2); NEUT % 83.5 % (42.8-82.8); PLATELET COUNT 282 K/MM3 (134-434); RBC 2.94 M/mm3 (3.60-5.2); RDW 16.2 % (11.6-15.6); WHITE BLOOD COUNT 8.1 K/mm3 (4.0-10.0)
[2020-02-03 07:27] LABS: ALBUMIN 2.4 g/dl (3.4-5.0); BILIRUBIN,TOTAL 0.5 mg/dL (0.2-1); BLOOD UREA NITROGEN 17.4 mg/dL (7-18); CALCIUM 8.4 mg/dL (8.5-10.1); CREATININE 0.3 mg/dL (0.55-1.3); MAGNESIUM 1.9 mg/dL (1.8-2.4); PHOSPHOROUS 3.1 mg/dL (2.5-4.9); POTASSIUM 3.8 mmol/L (3.5-5.1); TOT PROT 5.3 g/dl (6.4-8.2)
[2020-02-03] MEDS ORDERED: ACETAMINOPHEN 1000 MG/100 ML VIAL (NON FORMULARY) IVPB ONE (07:47)
[2020-02-03] MEDS: SENNOSIDES 8.6MG TABLET (FP) PO SCH ×2 (09:48→21:19)
[2020-02-03] MEDS: POLYETHYLENE GLYCOL 3350 119 GM BTL PO SCH (09:48)
[2020-02-03] MEDS ORDERED: LORazepam 2 MG/ML SDV VIAL ONE (10:09)
[2020-02-03] MEDS: PANTOPRAZOLE SODIUM 40 MG VIAL IVPUSH SCH (10:43)
[2020-02-03] MEDS: ENOXAPARIN NA (PORCINE) 60 MG/0.6 ML DISP.SYRIN SQ SCH ×2 (10:43→21:19)
[2020-02-03] MEDS ORDERED: LORazepam 2 MG/ML SDV VIAL IVPUSH ONE (10:52)
[2020-02-03] MEDS ORDERED: LORazepam 2 MG/ML SDV VIAL IM ONE (11:00)
[2020-02-03] MEDS: amLODIPine BESYLATE 5 MG TABLET (FP) PO SCH (11:37)
[2020-02-03] MEDS: ZINC SULFATE 220 MG CAPSULE (FP) PO SCH ×2 (11:37→21:20)
[2020-02-03] MEDS: ASCORBIC ACID 1,000 MG TABLET PO SCH ×2 (11:38→21:20)
[2020-02-03] MEDS: ATORVASTATIN CA 10 MG TABLET (FP) PO SCH (21:18)
[2020-02-03] MEDS: CHLORHEXIDINE GLUCONATE 4% CLEANSER FOR DECOLONIZATION TP SCH (21:18)
[2020-02-03] MEDS ORDERED: MAG HYDROX/AL HYDROX/SIMETH 30 ML UNIT-DOSE CUP PO ONE (22:35)
[2020-02-04] MEDS: ACETAMINOPHEN 325 MG TABLET (FP) PO PRN ×2 (03:05→09:57)
[2020-02-04 07:07] LABS: BASO % 0.1 % (0-2.0); EOS % 4.1 % (0-4.5); HEMATOCRIT 25.5 % (32.4-45.2); HEMOGLOBIN 8.5 GM/dL (10.7-15.3); LYMPH % 11.5 % (8-40); MCHC 33.1 g/dl (32.0-36.0); MEAN CELL VOLUME 90.6 fl (80-96); MEAN PLT VOLUME 9.3 fl (7.5-11.1); MONO % 2.5 % (3.8-10.2); NEUT % 81.8 % (42.8-82.8); PLATELET COUNT 285 K/MM3 (134-434); RBC 2.82 M/mm3 (3.60-5.2); RDW 16.1 % (11.6-15.6); WHITE BLOOD COUNT 7.4 K/mm3 (4.0-10.0)
[2020-02-04] MEDS ORDERED: SODIUM CHLORIDE NASAL SPRAY 44 ML BOTTLE NS PRN (07:18)
[2020-02-04] MEDS ORDERED: ALBUTEROL SO4 HFA INHALER IH PRN (07:18)
[2020-02-04] MEDS ORDERED: MORPHINE SULFATE 2 MG/ML VIAL IVPUSH PRN (07:18)
[2020-02-04] MEDS ORDERED: ACETAMINOPHEN 500 MG TABLET (FP) PO PRN (07:18)
[2020-02-04] MEDS ORDERED: guaiFENesin/D-M SUGAR-FREE/ACLHOL-FREE 118 ML BOTTLE PO PRN (07:18)
[2020-02-04 07:27] LABS: ALBUMIN 2.3 g/dl (3.4-5.0); BILIRUBIN,TOTAL 0.6 mg/dL (0.2-1); BLOOD UREA NITROGEN 17.2 mg/dL (7-18); CREATININE 0.3 mg/dL (0.55-1.3); MAGNESIUM 2.2 mg/dL (1.8-2.4); TOT PROT 5.2 g/dl (6.4-8.2)
[2020-02-04] MEDS ORDERED: PT OWN MED DRAWER 7, Y5N ONE (09:18)
[2020-02-04] MEDS: ENOXAPARIN NA (PORCINE) 60 MG/0.6 ML DISP.SYRIN SQ SCH ×2 (09:56→22:14)
[2020-02-04] MEDS: amLODIPine BESYLATE 5 MG TABLET (FP) PO SCH (09:57)
[2020-02-04] MEDS: POLYETHYLENE GLYCOL 3350 119 GM BTL PO SCH (09:57)
[2020-02-04] MEDS: ZINC SULFATE 220 MG CAPSULE (FP) PO SCH ×2 (09:58→22:14)
[2020-02-04] MEDS: PANTOPRAZOLE SODIUM 40 MG VIAL IVPUSH SCH (09:58)
[2020-02-04] MEDS: SENNOSIDES 8.6MG TABLET (FP) PO SCH ×2 (09:59→22:15)
[2020-02-04] MEDS ORDERED: ASCORBIC ACID 1,000 MG TABLET PO SCH (10:00)
[2020-02-04] MEDS: methylPREDNISolone NA SUCC 40 MG/1 ML VIAL IVPUSH SCH ×2 (14:53→22:13)
[2020-02-04] MEDS: ATORVASTATIN CA 10 MG TABLET (FP) PO SCH (22:14)
[2020-02-04] MEDS: ASCORBIC ACID 500 MG TABLET (FP) PO SCH (22:14)
[2020-02-05 07:07] LABS: BASO % 0.1 % (0-2.0); HEMATOCRIT 24.5 % (32.4-45.2); HEMOGLOBIN 8.1 GM/dL (10.7-15.3); MCH 30.1 pg (25.7-33.7); MCHC 33.1 g/dl (32.0-36.0); MEAN CELL VOLUME 91.1 fl (80-96); MEAN PLT VOLUME 8.9 fl (7.5-11.1); MONO % 1.5 % (3.8-10.2); NEUT % 90.4 % (42.8-82.8); PLATELET COUNT 276 K/MM3 (134-434); RBC 2.69 M/mm3 (3.60-5.2); RDW 17.2 % (11.6-15.6)
[2020-02-05 08:27] LABS: ALBUMIN 2.3 g/dl (3.4-5.0); BILIRUBIN,TOTAL 0.5 mg/dL (0.2-1); BLOOD UREA NITROGEN 23.2 mg/dL (7-18); CALCIUM 8.2 mg/dL (8.5-10.1); CREATININE 0.3 mg/dL (0.55-1.3); POTASSIUM 4.1 mmol/L (3.5-5.1); TOT PROT 5.5 g/dl (6.4-8.2)
[2020-02-05] MEDS: PANTOPRAZOLE SODIUM 40 MG VIAL IVPUSH SCH (09:53)
[2020-02-05] MEDS: ASCORBIC ACID 500 MG TABLET (FP) PO SCH ×2 (09:53→22:15)
[2020-02-05] MEDS: amLODIPine BESYLATE 5 MG TABLET (FP) PO SCH (09:53)
[2020-02-05] MEDS: SENNOSIDES 8.6MG TABLET (FP) PO SCH ×2 (09:54→22:14)
[2020-02-05] MEDS: ENOXAPARIN NA (PORCINE) 60 MG/0.6 ML DISP.SYRIN SQ SCH ×2 (09:54→22:14)
[2020-02-05] MEDS: ZINC SULFATE 220 MG CAPSULE (FP) PO SCH ×2 (09:54→22:14)
[2020-02-05] MEDS: methylPREDNISolone NA SUCC 40 MG/1 ML VIAL IVPUSH SCH ×2 (09:54→22:15)
[2020-02-05] MEDS: POLYETHYLENE GLYCOL 3350 119 GM BTL PO SCH (10:44)
[2020-02-05] MEDS: ATORVASTATIN CA 10 MG TABLET (FP) PO SCH (22:14)
[2020-02-06 07:24] LABS: BASO % 0.1 % (0-2.0); HEMATOCRIT 25.4 % (32.4-45.2); HEMOGLOBIN 8.2 GM/dL (10.7-15.3); LYMPH % 10.7 % (8-40); MCH 29.9 pg (25.7-33.7); MCHC 32.4 g/dl (32.0-36.0); MEAN CELL VOLUME 92.1 fl (80-96); MEAN PLT VOLUME 8.8 fl (7.5-11.1); MONO % 1.5 % (3.8-10.2); NEUT % 87.7 % (42.8-82.8); PLATELET COUNT 293 K/MM3 (134-434); RBC 2.76 M/mm3 (3.60-5.2); RDW 17.3 % (11.6-15.6); WHITE BLOOD COUNT 10.1 K/mm3 (4.0-10.0)
[2020-02-06 07:42] LABS: ALBUMIN 2.5 g/dl (3.4-5.0); BILIRUBIN,TOTAL 0.8 mg/dL (0.2-1); BLOOD UREA NITROGEN 24.6 mg/dL (7-18); CALCIUM 8.4 mg/dL (8.5-10.1); CREATININE 0.3 mg/dL (0.55-1.3); TOT PROT 5.8 g/dl (6.4-8.2)
[2020-02-06] MEDS: ENOXAPARIN NA (PORCINE) 60 MG/0.6 ML DISP.SYRIN SQ SCH ×2 (09:41→21:39)
[2020-02-06] MEDS: PANTOPRAZOLE SODIUM 40 MG VIAL IVPUSH SCH (09:41)
[2020-02-06] MEDS: ZINC SULFATE 220 MG CAPSULE (FP) PO SCH ×2 (09:41→21:39)
[2020-02-06] MEDS: amLODIPine BESYLATE 5 MG TABLET (FP) PO SCH (09:41)
[2020-02-06] MEDS: SENNOSIDES 8.6MG TABLET (FP) PO SCH ×2 (09:42→21:39)
[2020-02-06] MEDS: ASCORBIC ACID 500 MG TABLET (FP) PO SCH ×2 (09:42→21:39)
[2020-02-06] MEDS: methylPREDNISolone NA SUCC 40 MG/1 ML VIAL IVPUSH SCH ×2 (09:42→21:39)
[2020-02-06] MEDS: POLYETHYLENE GLYCOL 3350 119 GM BTL PO SCH (10:08)
[2020-02-06] MEDS: ATORVASTATIN CA 10 MG TABLET (FP) PO SCH (21:38)
[2020-02-07 07:17] LABS: BASO % 0.2 % (0-2.0); HEMOGLOBIN 7.9 GM/dL (10.7-15.3); LYMPH % 8.7 % (8-40); MCH 30.1 pg (25.7-33.7); MCHC 32.7 g/dl (32.0-36.0); MEAN CELL VOLUME 92.1 fl (80-96); MEAN PLT VOLUME 8.6 fl (7.5-11.1); MONO % 2.5 % (3.8-10.2); NEUT % 88.6 % (42.8-82.8); PLATELET COUNT 290 K/MM3 (134-434); RBC 2.61 M/mm3 (3.60-5.2); WHITE BLOOD COUNT 8.9 K/mm3 (4.0-10.0)
[2020-02-07 07:50] LABS: ALBUMIN 2.4 g/dl (3.4-5.0); BILIRUBIN,TOTAL 0.6 mg/dL (0.2-1); BLOOD UREA NITROGEN 21.3 mg/dL (7-18); CALCIUM 8.1 mg/dL (8.5-10.1); CREATININE 0.2 mg/dL (0.55-1.3); MAGNESIUM 2.3 mg/dL (1.8-2.4); PHOSPHOROUS 3.1 mg/dL (2.5-4.9); POTASSIUM 4.4 mmol/L (3.5-5.1); TOT PROT 5.5 g/dl (6.4-8.2)
[2020-02-07] MEDS: ZINC SULFATE 220 MG CAPSULE (FP) PO SCH ×2 (09:21→21:58)
[2020-02-07] MEDS: amLODIPine BESYLATE 5 MG TABLET (FP) PO SCH (09:21)
[2020-02-07] MEDS: POLYETHYLENE GLYCOL 3350 119 GM BTL PO SCH (09:21)
[2020-02-07] MEDS: ASCORBIC ACID 500 MG TABLET (FP) PO SCH ×2 (09:22→21:58)
[2020-02-07] MEDS: SENNOSIDES 8.6MG TABLET (FP) PO SCH ×2 (09:22→21:58)
[2020-02-07] MEDS: ENOXAPARIN NA (PORCINE) 60 MG/0.6 ML DISP.SYRIN SQ SCH (09:24)
[2020-02-07] MEDS: PANTOPRAZOLE SODIUM 40 MG VIAL IVPUSH SCH (09:27)
[2020-02-07] MEDS: methylPREDNISolone NA SUCC 40 MG/1 ML VIAL IVPUSH SCH ×2 (09:27→21:58)
[2020-02-07] MEDS: ACETAMINOPHEN 325 MG TABLET (FP) PO PRN (21:58)
[2020-02-07] MEDS: ATORVASTATIN CA 10 MG TABLET (FP) PO SCH (21:58)
[2020-02-08 07:13] LABS: BASO % 0.1 % (0-2.0); HEMATOCRIT 25.5 % (32.4-45.2); HEMOGLOBIN 8.3 GM/dL (10.7-15.3); LYMPH % 11.8 % (8-40); MCH 30.2 pg (25.7-33.7); MCHC 32.4 g/dl (32.0-36.0); MEAN CELL VOLUME 93.1 fl (80-96); MEAN PLT VOLUME 8.5 fl (7.5-11.1); MONO % 2.7 % (3.8-10.2); NEUT % 85.4 % (42.8-82.8); PLATELET COUNT 307 K/MM3 (134-434); RBC 2.74 M/mm3 (3.60-5.2); RDW 18.6 % (11.6-15.6); WHITE BLOOD COUNT 8.8 K/mm3 (4.0-10.0)
[2020-02-08 09:57] LABS: ANISOCYTOSIS 1+; MACROCYTOSIS 0; PLATELET ESTIMATE NORMAL; TARGET CELLS 1+
[2020-02-08] MEDS: SENNOSIDES 8.6MG TABLET (FP) PO SCH ×2 (10:20→22:18)
[2020-02-08] MEDS: PANTOPRAZOLE SODIUM 40 MG VIAL IVPUSH SCH (10:20)
[2020-02-08] MEDS: amLODIPine BESYLATE 5 MG TABLET (FP) PO SCH (10:20)
[2020-02-08] MEDS: ASCORBIC ACID 500 MG TABLET (FP) PO SCH ×2 (10:20→22:18)
[2020-02-08] MEDS: ZINC SULFATE 220 MG CAPSULE (FP) PO SCH ×2 (10:21→22:18)
[2020-02-08] MEDS: POLYETHYLENE GLYCOL 3350 119 GM BTL PO SCH (10:21)
[2020-02-08] MEDS: methylPREDNISolone NA SUCC 40 MG/1 ML VIAL IVPUSH SCH ×2 (10:22→22:18)
[2020-02-08 16:56] LABS: ARTERIAL BLD GAS O2 SATURATION 96.8 % (95-98); ARTERIAL BLOOD GAS BASE EXCESS 7.4 mmol/L (-2-2); ARTERIAL BLOOD GAS PCO2 69.5 mmHg (35-45); ARTERIAL BLOOD GAS PO2 98.2 mmHg (80-100); ARTERIAL BLOOD GAS pH 7.33 (7.35-7.45)
[2020-02-08 16:57] LABS: ALLENS TEST POSITIVE
[2020-02-08] MEDS: ATORVASTATIN CA 10 MG TABLET (FP) PO SCH (22:17)
[2020-02-08] MEDS: ENOXAPARIN NA (PORCINE) 60 MG/0.6 ML DISP.SYRIN SQ SCH (22:17)
[2020-02-08] MEDS: ACETAMINOPHEN 325 MG TABLET (FP) PO PRN (22:24)
[2020-02-09 06:56] LABS: BASO % 0.1 % (0-2.0); EOS % 0.1 % (0-4.5); HEMATOCRIT 25.7 % (32.4-45.2); HEMOGLOBIN 8.3 GM/dL (10.7-15.3); LYMPH % 9.7 % (8-40); MCH 30.6 pg (25.7-33.7); MCHC 32.4 g/dl (32.0-36.0); MEAN CELL VOLUME 94.4 fl (80-96); MEAN PLT VOLUME 8.5 fl (7.5-11.1); MONO % 1.1 % (3.8-10.2); PLATELET COUNT 281 K/MM3 (134-434); RBC 2.73 M/mm3 (3.60-5.2); RDW 18.6 % (11.6-15.6); WHITE BLOOD COUNT 7.5 K/mm3 (4.0-10.0)
[2020-02-09 07:06] LABS: ALBUMIN 2.6 g/dl (3.4-5.0); BILIRUBIN,TOTAL 0.6 mg/dL (0.2-1); BLOOD UREA NITROGEN 23.3 mg/dL (7-18); CREATININE 0.3 mg/dL (0.55-1.3); MAGNESIUM 2.3 mg/dL (1.8-2.4); PHOSPHOROUS 4.1 mg/dL (2.5-4.9); POTASSIUM 4.4 mmol/L (3.5-5.1); TOT PROT 5.5 g/dl (6.4-8.2)
[2020-02-09] MEDS: ENOXAPARIN NA (PORCINE) 60 MG/0.6 ML DISP.SYRIN SQ SCH ×2 (09:54→21:57)
[2020-02-09] MEDS: PANTOPRAZOLE SODIUM 40 MG VIAL IVPUSH SCH (09:55)
[2020-02-09] MEDS: methylPREDNISolone NA SUCC 40 MG/1 ML VIAL IVPUSH SCH ×2 (09:55→21:58)
[2020-02-09] MEDS: POLYETHYLENE GLYCOL 3350 119 GM BTL PO SCH ×2 (12:24→12:51)
[2020-02-09] MEDS: ZINC SULFATE 220 MG CAPSULE (FP) PO SCH ×3 (12:24→21:57)
[2020-02-09] MEDS: amLODIPine BESYLATE 5 MG TABLET (FP) PO SCH ×2 (12:24→12:52)
[2020-02-09] MEDS: ASCORBIC ACID 500 MG TABLET (FP) PO SCH ×3 (12:25→21:58)
[2020-02-09] MEDS: SENNOSIDES 8.6MG TABLET (FP) PO SCH ×3 (12:25→21:58)
[2020-02-09] MEDS: ATORVASTATIN CA 10 MG TABLET (FP) PO SCH (21:57)
[2020-02-09] MEDS: ACETAMINOPHEN 325 MG TABLET (FP) PO PRN (21:58)
[2020-02-10] MEDS: ENOXAPARIN NA (PORCINE) 60 MG/0.6 ML DISP.SYRIN SQ SCH ×2 (09:49→20:21)
[2020-02-10] MEDS: ASCORBIC ACID 500 MG TABLET (FP) PO SCH ×2 (09:50→22:23)
[2020-02-10] MEDS: POLYETHYLENE GLYCOL 3350 119 GM BTL PO SCH (09:50)
[2020-02-10] MEDS: amLODIPine BESYLATE 5 MG TABLET (FP) PO SCH (09:50)
[2020-02-10] MEDS: methylPREDNISolone NA SUCC 40 MG/1 ML VIAL IVPUSH SCH ×2 (09:50→22:20)
[2020-02-10] MEDS: SENNOSIDES 8.6MG TABLET (FP) PO SCH ×2 (09:50→22:22)
[2020-02-10] MEDS: ZINC SULFATE 220 MG CAPSULE (FP) PO SCH ×2 (09:50→22:22)
[2020-02-10] MEDS: PANTOPRAZOLE SODIUM 40 MG VIAL IVPUSH SCH (09:50)
[2020-02-10] MEDS ORDERED: clonazePAM 0.5 MG TABLET PO PRN (09:55)
[2020-02-10] MEDS ORDERED: LORazepam 2 MG/ML SDV VIAL IVPUSH PRN (22:18)
[2020-02-10] MEDS: ATORVASTATIN CA 10 MG TABLET (FP) PO SCH (22:22)
[2020-02-11] MEDS: ASCORBIC ACID 500 MG TABLET (FP) PO SCH ×2 (09:12→23:21)
[2020-02-11] MEDS: amLODIPine BESYLATE 5 MG TABLET (FP) PO SCH (09:12)
[2020-02-11] MEDS: methylPREDNISolone NA SUCC 40 MG/1 ML VIAL IVPUSH SCH ×2 (09:13→22:50)
[2020-02-11] MEDS: ZINC SULFATE 220 MG CAPSULE (FP) PO SCH ×2 (09:14→23:20)
[2020-02-11] MEDS: PANTOPRAZOLE SODIUM 40 MG VIAL IVPUSH SCH (09:14)
[2020-02-11] MEDS: SENNOSIDES 8.6MG TABLET (FP) PO SCH ×2 (09:14→23:20)
[2020-02-11] MEDS: ENOXAPARIN NA (PORCINE) 60 MG/0.6 ML DISP.SYRIN SQ SCH ×2 (09:15→22:50)
[2020-02-11] MEDS: POLYETHYLENE GLYCOL 3350 119 GM BTL PO SCH (09:15)
[2020-02-11] MEDS: ATORVASTATIN CA 10 MG TABLET (FP) PO SCH (23:19)
[2020-02-12] MEDS: POLYETHYLENE GLYCOL 3350 119 GM BTL PO SCH (09:49)
[2020-02-12] MEDS: ENOXAPARIN NA (PORCINE) 60 MG/0.6 ML DISP.SYRIN SQ SCH ×2 (09:49→23:30)
[2020-02-12] MEDS: SENNOSIDES 8.6MG TABLET (FP) PO SCH ×2 (09:50→23:35)
[2020-02-12] MEDS: methylPREDNISolone NA SUCC 40 MG/1 ML VIAL IVPUSH SCH ×2 (09:50→23:30)
[2020-02-12] MEDS: amLODIPine BESYLATE 5 MG TABLET (FP) PO SCH (09:50)
[2020-02-12] MEDS: ZINC SULFATE 220 MG CAPSULE (FP) PO SCH ×2 (09:50→23:35)
[2020-02-12] MEDS: PANTOPRAZOLE SODIUM 40 MG VIAL IVPUSH SCH (09:50)
[2020-02-12] MEDS: ASCORBIC ACID 500 MG TABLET (FP) PO SCH ×2 (09:50→23:35)
[2020-02-12] MEDS: ATORVASTATIN CA 10 MG TABLET (FP) PO SCH (23:34)
[2020-02-13] MEDS: POLYETHYLENE GLYCOL 3350 119 GM BTL PO SCH (09:34)
[2020-02-13] MEDS: ENOXAPARIN NA (PORCINE) 60 MG/0.6 ML DISP.SYRIN SQ SCH ×2 (09:34→21:04)
[2020-02-13] MEDS: ASCORBIC ACID 500 MG TABLET (FP) PO SCH ×2 (09:35→22:12)
[2020-02-13] MEDS: ZINC SULFATE 220 MG CAPSULE (FP) PO SCH ×2 (09:35→22:13)
[2020-02-13] MEDS: SENNOSIDES 8.6MG TABLET (FP) PO SCH ×2 (09:35→22:14)
[2020-02-13] MEDS: methylPREDNISolone NA SUCC 40 MG/1 ML VIAL IVPUSH SCH ×2 (09:35→22:14)
[2020-02-13] MEDS: amLODIPine BESYLATE 5 MG TABLET (FP) PO SCH (09:35)
[2020-02-13] MEDS: PANTOPRAZOLE SODIUM 40 MG VIAL IVPUSH SCH (09:35)
[2020-02-13] MEDS: ATORVASTATIN CA 10 MG TABLET (FP) PO SCH (22:14)
[2020-02-14 07:45] LABS: HEMATOCRIT 28.8 % (32.4-45.2); HEMOGLOBIN 9.4 GM/dL (10.7-15.3); MCHC 32.5 g/dl (32.0-36.0); MEAN CELL VOLUME 95.4 fl (80-96); PLATELET COUNT 284 K/MM3 (134-434); RBC 3.02 M/mm3 (3.60-5.2); RDW 20.8 % (11.6-15.6); WHITE BLOOD COUNT 5.9 K/mm3 (4.0-10.0)
[2020-02-14 08:12] LABS: BLOOD UREA NITROGEN 21.2 mg/dL (7-18); CALCIUM 8.5 mg/dL (8.5-10.1); CREATININE 0.3 mg/dL (0.55-1.3); POTASSIUM 4.3 mmol/L (3.5-5.1)
[2020-02-14] MEDS: amLODIPine BESYLATE 5 MG TABLET (FP) PO SCH (09:43)
[2020-02-14] MEDS: ZINC SULFATE 220 MG CAPSULE (FP) PO SCH ×2 (09:43→23:39)
[2020-02-14] MEDS: POLYETHYLENE GLYCOL 3350 119 GM BTL PO SCH (09:43)
[2020-02-14] MEDS: methylPREDNISolone NA SUCC 40 MG/1 ML VIAL IVPUSH SCH (09:44)
[2020-02-14] MEDS: PANTOPRAZOLE SODIUM 40 MG VIAL IVPUSH SCH (09:44)
[2020-02-14] MEDS: SENNOSIDES 8.6MG TABLET (FP) PO SCH ×2 (09:44→23:42)
[2020-02-14] MEDS: ASCORBIC ACID 500 MG TABLET (FP) PO SCH ×2 (09:44→23:39)
[2020-02-14] MEDS ORDERED: ENOXAPARIN NA (PORCINE) 40 MG/0.4 ML DISP.SYRIN SQ SCH (10:00)
[2020-02-14] MEDS: predniSONE 20 MG TABLET (UD) PO SCH (10:27)
[2020-02-14] MEDS: ATORVASTATIN CA 10 MG TABLET (FP) PO SCH (23:39)
[2020-02-14] MEDS: ENOXAPARIN NA (PORCINE) 60 MG/0.6 ML DISP.SYRIN SQ SCH (23:41)
[2020-02-15] MEDS ORDERED: LORazepam 2 MG/ML SDV VIAL IVPUSH ONE (07:36)
[2020-02-15] MEDS ORDERED: LORazepam 2 MG/ML SDV VIAL ONE (07:41)
[2020-02-15] MEDS ORDERED: PT OWN MED DRAWER 7, Y5N ONE (09:30)
[2020-02-15] MEDS: ENOXAPARIN NA (PORCINE) 60 MG/0.6 ML DISP.SYRIN SQ SCH ×2 (10:13→22:24)
[2020-02-15] MEDS: POLYETHYLENE GLYCOL 3350 119 GM BTL PO SCH (10:13)
[2020-02-15] MEDS: amLODIPine BESYLATE 5 MG TABLET (FP) PO SCH (10:13)
[2020-02-15] MEDS: predniSONE 20 MG TABLET (UD) PO SCH (10:13)
[2020-02-15] MEDS: ASCORBIC ACID 500 MG TABLET (FP) PO SCH ×2 (10:14→22:24)
[2020-02-15] MEDS: ZINC SULFATE 220 MG CAPSULE (FP) PO SCH ×2 (10:14→22:24)
[2020-02-15] MEDS: SENNOSIDES 8.6MG TABLET (FP) PO SCH ×2 (10:14→22:24)
[2020-02-15] MEDS: PANTOPRAZOLE SODIUM 40 MG VIAL IVPUSH SCH (10:14)
[2020-02-15] MEDS: ATORVASTATIN CA 10 MG TABLET (FP) PO SCH (22:23)
[2020-02-16] MEDS ORDERED: PT OWN MED DRAWER 7, Y5N ONE ×2 (09:03→09:06)
[2020-02-16] MEDS: PANTOPRAZOLE SODIUM 40 MG VIAL IVPUSH SCH (11:33)
[2020-02-16] MEDS: ZINC SULFATE 220 MG CAPSULE (FP) PO SCH ×2 (11:33→21:30)
[2020-02-16] MEDS: ASCORBIC ACID 500 MG TABLET (FP) PO SCH ×2 (11:34→21:30)
[2020-02-16] MEDS: amLODIPine BESYLATE 5 MG TABLET (FP) PO SCH (11:34)
[2020-02-16] MEDS: SENNOSIDES 8.6MG TABLET (FP) PO SCH ×2 (11:34→21:30)
[2020-02-16] MEDS: ENOXAPARIN NA (PORCINE) 60 MG/0.6 ML DISP.SYRIN SQ SCH ×2 (11:34→21:29)
[2020-02-16] MEDS: predniSONE 20 MG TABLET (UD) PO SCH (11:35)
[2020-02-16] MEDS: POLYETHYLENE GLYCOL 3350 119 GM BTL PO SCH (11:35)
[2020-02-16] MEDS: ATORVASTATIN CA 10 MG TABLET (FP) PO SCH (21:29)
[2020-02-16] MEDS: ACETAMINOPHEN 325 MG TABLET (FP) PO PRN (21:30)
[2020-02-17] MEDS: predniSONE 20 MG TABLET (UD) PO SCH (09:10)
[2020-02-17] MEDS: ENOXAPARIN NA (PORCINE) 60 MG/0.6 ML DISP.SYRIN SQ SCH ×2 (09:10→21:48)
[2020-02-17] MEDS: POLYETHYLENE GLYCOL 3350 119 GM BTL PO SCH (09:11)
[2020-02-17] MEDS: amLODIPine BESYLATE 5 MG TABLET (FP) PO SCH (09:13)
[2020-02-17] MEDS: SENNOSIDES 8.6MG TABLET (FP) PO SCH ×2 (09:13→21:49)
[2020-02-17] MEDS: PANTOPRAZOLE SODIUM 40 MG VIAL IVPUSH SCH (09:13)
[2020-02-17] MEDS: ZINC SULFATE 220 MG CAPSULE (FP) PO SCH ×2 (09:13→21:49)
[2020-02-17] MEDS: ASCORBIC ACID 500 MG TABLET (FP) PO SCH ×2 (09:15→21:49)
[2020-02-17] MEDS: ATORVASTATIN CA 10 MG TABLET (FP) PO SCH (21:48)
[2020-02-18] MEDS: PANTOPRAZOLE SODIUM 40 MG VIAL IVPUSH SCH (09:26)
[2020-02-18] MEDS: POLYETHYLENE GLYCOL 3350 119 GM BTL PO SCH (09:26)
[2020-02-18] MEDS: ZINC SULFATE 220 MG CAPSULE (FP) PO SCH ×2 (09:26→21:34)
[2020-02-18] MEDS: amLODIPine BESYLATE 5 MG TABLET (FP) PO SCH (09:26)
[2020-02-18] MEDS: ENOXAPARIN NA (PORCINE) 60 MG/0.6 ML DISP.SYRIN SQ SCH ×2 (09:27→21:35)
[2020-02-18] MEDS: ASCORBIC ACID 500 MG TABLET (FP) PO SCH ×2 (09:27→21:34)
[2020-02-18] MEDS: SENNOSIDES 8.6MG TABLET (FP) PO SCH ×2 (09:27→21:34)
[2020-02-18] MEDS: predniSONE 20 MG TABLET (UD) PO SCH (09:27)
[2020-02-18] MEDS: ACETAMINOPHEN 325 MG TABLET (FP) PO PRN (18:00)
[2020-02-18] MEDS: ATORVASTATIN CA 10 MG TABLET (FP) PO SCH (21:34)
[2020-02-19] MEDS: ENOXAPARIN NA (PORCINE) 60 MG/0.6 ML DISP.SYRIN SQ SCH ×2 (09:23→21:41)
[2020-02-19] MEDS: POLYETHYLENE GLYCOL 3350 119 GM BTL PO SCH (09:23)
[2020-02-19] MEDS: predniSONE 20 MG TABLET (UD) PO SCH (09:23)
[2020-02-19] MEDS: SENNOSIDES 8.6MG TABLET (FP) PO SCH ×2 (09:24→21:41)
[2020-02-19] MEDS: ZINC SULFATE 220 MG CAPSULE (FP) PO SCH ×2 (09:24→21:41)
[2020-02-19] MEDS: PANTOPRAZOLE SODIUM 40 MG VIAL IVPUSH SCH (09:24)
[2020-02-19] MEDS: ASCORBIC ACID 500 MG TABLET (FP) PO SCH ×2 (09:24→21:41)
[2020-02-19] MEDS: amLODIPine BESYLATE 5 MG TABLET (FP) PO SCH (09:24)
[2020-02-19] MEDS: ATORVASTATIN CA 10 MG TABLET (FP) PO SCH (21:40)
[2020-02-20] MEDS: ACETAMINOPHEN 325 MG TABLET (FP) PO PRN ×2 (04:34→17:08)
[2020-02-20] MEDS: predniSONE 20 MG TABLET (UD) PO SCH (09:26)
[2020-02-20] MEDS: ENOXAPARIN NA (PORCINE) 60 MG/0.6 ML DISP.SYRIN SQ SCH ×2 (09:26→21:23)
[2020-02-20] MEDS: amLODIPine BESYLATE 5 MG TABLET (FP) PO SCH (09:26)
[2020-02-20] MEDS: POLYETHYLENE GLYCOL 3350 119 GM BTL PO SCH (09:26)
[2020-02-20] MEDS: PANTOPRAZOLE SODIUM 40 MG VIAL IVPUSH SCH (09:27)
[2020-02-20] MEDS: SENNOSIDES 8.6MG TABLET (FP) PO SCH ×2 (09:27→21:24)
[2020-02-20] MEDS: ZINC SULFATE 220 MG CAPSULE (FP) PO SCH ×2 (09:27→21:24)
[2020-02-20] MEDS: ASCORBIC ACID 500 MG TABLET (FP) PO SCH ×2 (09:27→21:24)
[2020-02-20] MEDS: ATORVASTATIN CA 10 MG TABLET (FP) PO SCH (21:24)
[2020-02-21] MEDS: ACETAMINOPHEN 325 MG TABLET (FP) PO PRN ×2 (05:20→21:31)
[2020-02-21] MEDS: ASCORBIC ACID 500 MG TABLET (FP) PO SCH ×2 (09:47→21:31)
[2020-02-21] MEDS: predniSONE 20 MG TABLET (UD) PO SCH (09:47)
[2020-02-21] MEDS: POLYETHYLENE GLYCOL 3350 119 GM BTL PO SCH (09:47)
[2020-02-21] MEDS: SENNOSIDES 8.6MG TABLET (FP) PO SCH ×2 (09:47→21:31)
[2020-02-21] MEDS: amLODIPine BESYLATE 5 MG TABLET (FP) PO SCH (09:47)
[2020-02-21] MEDS: PANTOPRAZOLE SODIUM 40 MG VIAL IVPUSH SCH (09:47)
[2020-02-21] MEDS: ZINC SULFATE 220 MG CAPSULE (FP) PO SCH ×2 (09:47→21:31)
[2020-02-21] MEDS: ENOXAPARIN NA (PORCINE) 60 MG/0.6 ML DISP.SYRIN SQ SCH (09:47)
[2020-02-21] MEDS: ATORVASTATIN CA 10 MG TABLET (FP) PO SCH (21:31)
[2020-02-22] MEDS ORDERED: ACETAMINOPHEN 1000 MG/100 ML VIAL (NON FORMULARY) IVPB ONE (10:45)
[2020-02-22 10:59] LABS: HEMATOCRIT 28.8 % (32.4-45.2); HEMOGLOBIN 9.1 GM/dL (10.7-15.3); MCH 29.5 pg (25.7-33.7); MCHC 31.5 g/dl (32.0-36.0); MEAN CELL VOLUME 93.9 fl (80-96); MEAN PLT VOLUME 8.8 fl (7.5-11.1); PLATELET COUNT 365 K/MM3 (134-434); RBC 3.07 M/mm3 (3.60-5.2); RDW 19.1 % (11.6-15.6); WHITE BLOOD COUNT 6.9 K/mm3 (4.0-10.0)
[2020-02-22] MEDS: PANTOPRAZOLE SODIUM 40 MG VIAL IVPUSH SCH (11:14)
[2020-02-22 11:29] LABS: ALBUMIN 1.9 g/dl (3.4-5.0); BILIRUBIN,TOTAL 0.6 mg/dL (0.2-1); BLOOD UREA NITROGEN 21.5 mg/dL (7-18); CALCIUM 8.6 mg/dL (8.5-10.1); CREATININE 0.2 mg/dL (0.55-1.3); PHOSPHOROUS 3.4 mg/dL (2.5-4.9); POTASSIUM 4.1 mmol/L (3.5-5.1); TOT PROT 5.8 g/dl (6.4-8.2)
[2020-02-22] MEDS: ZINC SULFATE 220 MG CAPSULE (FP) PO SCH ×2 (13:34→21:00)
[2020-02-22] MEDS: predniSONE 20 MG TABLET (UD) PO SCH (13:34)
[2020-02-22] MEDS: SENNOSIDES 8.6MG TABLET (FP) PO SCH ×2 (13:34→21:00)
[2020-02-22] MEDS: amLODIPine BESYLATE 5 MG TABLET (FP) PO SCH (13:34)
[2020-02-22] MEDS: ASCORBIC ACID 500 MG TABLET (FP) PO SCH ×2 (13:34→21:01)
[2020-02-22] MEDS: POLYETHYLENE GLYCOL 3350 119 GM BTL PO SCH (13:34)
[2020-02-22] MEDS: ATORVASTATIN CA 10 MG TABLET (FP) PO SCH (21:00)
[2020-02-22] MEDS: ACETAMINOPHEN 325 MG TABLET (FP) PO PRN (21:01)
[2020-02-22] MEDS: ENOXAPARIN NA (PORCINE) 60 MG/0.6 ML DISP.SYRIN SQ SCH (22:37)
[2020-02-23 06:13] LABS: HEMATOCRIT 29.2 % (32.4-45.2); HEMOGLOBIN 9.3 GM/dL (10.7-15.3); MCH 29.9 pg (25.7-33.7); MEAN CELL VOLUME 93.7 fl (80-96); MEAN PLT VOLUME 8.4 fl (7.5-11.1); PLATELET COUNT 361 K/MM3 (134-434); RBC 3.12 M/mm3 (3.60-5.2); WHITE BLOOD COUNT 5.1 K/mm3 (4.0-10.0)
[2020-02-23 06:38] LABS: ALBUMIN 1.9 g/dl (3.4-5.0); BILIRUBIN,TOTAL 0.6 mg/dL (0.2-1); BLOOD UREA NITROGEN 25.2 mg/dL (7-18); CALCIUM 8.5 mg/dL (8.5-10.1); CREATININE 0.3 mg/dL (0.55-1.3); PHOSPHOROUS 3.7 mg/dL (2.5-4.9); POTASSIUM 4.1 mmol/L (3.5-5.1); TOT PROT 5.8 g/dl (6.4-8.2)
[2020-02-23] MEDS: POLYETHYLENE GLYCOL 3350 119 GM BTL PO SCH (11:34)
[2020-02-23] MEDS: predniSONE 20 MG TABLET (UD) PO SCH (11:34)
[2020-02-23] MEDS: ENOXAPARIN NA (PORCINE) 60 MG/0.6 ML DISP.SYRIN SQ SCH ×2 (11:34→21:25)
[2020-02-23] MEDS: SENNOSIDES 8.6MG TABLET (FP) PO SCH ×2 (11:35→21:25)
[2020-02-23] MEDS: ASCORBIC ACID 500 MG TABLET (FP) PO SCH ×2 (11:35→21:26)
[2020-02-23] MEDS: ZINC SULFATE 220 MG CAPSULE (FP) PO SCH ×2 (11:35→21:25)
[2020-02-23] MEDS: PANTOPRAZOLE SODIUM 40 MG VIAL IVPUSH SCH (11:35)
[2020-02-23] MEDS: amLODIPine BESYLATE 5 MG TABLET (FP) PO SCH (11:35)
[2020-02-23 16:18] VITALS: BMI 21.4
[2020-02-23] MEDS ORDERED: PT OWN MED DRAWER 7, Y5N ONE (17:24)
[2020-02-23] MEDS: MULTIVIT INJ. ADULT COMBO WITH VIT K 1 COMBO 10 ML VIAL IV SCH (17:56)
[2020-02-23] MEDS: AMINO ACIDS 4.25%/D5W 1,000 ML IV SCH (17:56)
[2020-02-23] MEDS: MORPHINE SULFATE 2 MG/ML VIAL IVPUSH PRN (20:00)
[2020-02-23] MEDS: ACETAMINOPHEN 325 MG TABLET (FP) PO PRN (20:09)
[2020-02-23] MEDS: ATORVASTATIN CA 10 MG TABLET (FP) PO SCH (21:25)
[2020-02-24] MEDS: ACETAMINOPHEN 1000 MG/100 ML VIAL (NON FORMULARY) IVPB PRN ×2 (06:06→13:18)
[2020-02-24] MEDS ORDERED: ACETAMINOPHEN 325 MG TABLET (FP) PO PRN (08:27)
[2020-02-24] MEDS ORDERED: guaiFENesin/D-M SUGAR-FREE/ACLHOL-FREE 118 ML BOTTLE PO PRN (08:27)
[2020-02-24] MEDS ORDERED: SODIUM CHLORIDE NASAL SPRAY 44 ML BOTTLE NS PRN (08:27)
[2020-02-24] MEDS ORDERED: ALBUTEROL SO4 HFA INHALER IH PRN (08:27)
[2020-02-24 09:13] LABS: BASO % 0.2 % (0-2.0); EOS % 0.1 % (0-4.5); HEMATOCRIT 26.4 % (32.4-45.2); HEMOGLOBIN 8.4 GM/dL (10.7-15.3); LYMPH % 13.8 % (8-40); MCH 30.1 pg (25.7-33.7); MEAN PLT VOLUME 8.6 fl (7.5-11.1); MONO % 1.7 % (3.8-10.2); NEUT % 84.2 % (42.8-82.8); PLATELET COUNT 373 K/MM3 (134-434); RDW 18.6 % (11.6-15.6); WHITE BLOOD COUNT 5.1 K/mm3 (4.0-10.0)
[2020-02-24 09:47] LABS: ALBUMIN 1.6 g/dl (3.4-5.0); BILIRUBIN,TOTAL 0.4 mg/dL (0.2-1); BLOOD UREA NITROGEN 23.7 mg/dL (7-18); CALCIUM 8.3 mg/dL (8.5-10.1); CREATININE 0.3 mg/dL (0.55-1.3); MAGNESIUM 1.9 mg/dL (1.8-2.4); POTASSIUM 3.9 mmol/L (3.5-5.1); TOT PROT 5.3 g/dl (6.4-8.2)
[2020-02-24] MEDS ORDERED: PT OWN MED DRAWER 7, Y5N ONE (11:10)
[2020-02-24] MEDS: amLODIPine BESYLATE 5 MG TABLET (FP) PO SCH (11:12)
[2020-02-24] MEDS: PANTOPRAZOLE SODIUM 40 MG VIAL IVPUSH SCH (11:12)
[2020-02-24] MEDS: ASCORBIC ACID 500 MG TABLET (FP) PO SCH ×3 (11:12→23:01)
[2020-02-24] MEDS: predniSONE 20 MG TABLET (UD) PO SCH (11:12)
[2020-02-24 11:13] LABS: ANISOCYTOSIS 1+; MACROCYTOSIS 0; PLATELET ESTIMATE NORMAL
[2020-02-24] MEDS: ZINC SULFATE 220 MG CAPSULE (FP) PO SCH ×3 (11:13→23:00)
[2020-02-24] MEDS: ENOXAPARIN NA (PORCINE) 60 MG/0.6 ML DISP.SYRIN SQ SCH ×2 (11:13→23:00)
[2020-02-24] MEDS: SENNOSIDES 8.6MG TABLET (FP) PO SCH ×3 (11:13→23:01)
[2020-02-24] MEDS: POLYETHYLENE GLYCOL 3350 119 GM BTL PO SCH (12:12)
[2020-02-24] MEDS: MORPHINE SULFATE 2 MG/ML VIAL IVPUSH PRN ×2 (13:20→19:02)
[2020-02-24] MEDS: MULTIVIT INJ. ADULT COMBO WITH VIT K 1 COMBO 10 ML VIAL IV SCH (18:44)
[2020-02-24] MEDS: AMINO ACIDS 4.25%/D5W 1,000 ML IV SCH (18:44)
[2020-02-24] MEDS ORDERED: ATORVASTATIN CA 10 MG TABLET (FP) PO SCH (22:00)
[2020-02-25] MEDS: MORPHINE SULFATE 2 MG/ML VIAL IVPUSH PRN ×3 (03:15→15:18)
[2020-02-25 06:41] LABS: BASO % 0.4 % (0-2.0); EOS % 0.2 % (0-4.5); HEMATOCRIT 28.5 % (32.4-45.2); MCH 29.9 pg (25.7-33.7); MCHC 31.7 g/dl (32.0-36.0); MEAN CELL VOLUME 94.1 fl (80-96); MEAN PLT VOLUME 8.5 fl (7.5-11.1); MONO % 1.4 % (3.8-10.2); PLATELET COUNT 444 K/MM3 (134-434); RBC 3.03 M/mm3 (3.60-5.2); RDW 18.9 % (11.6-15.6); WHITE BLOOD COUNT 6.2 K/mm3 (4.0-10.0)
[2020-02-25 06:55] LABS: ALBUMIN 1.7 g/dl (3.4-5.0); BILIRUBIN,TOTAL 0.6 mg/dL (0.2-1); BLOOD UREA NITROGEN 26.1 mg/dL (7-18); CALCIUM 8.7 mg/dL (8.5-10.1); CREATININE 0.3 mg/dL (0.55-1.3); MAGNESIUM 1.9 mg/dL (1.8-2.4); POTASSIUM 4.4 mmol/L (3.5-5.1); TOT PROT 6.2 g/dl (6.4-8.2)
[2020-02-25 09:35] LABS: ANISOCYTOSIS 1+; MACROCYTOSIS 0; PLATELET ESTIMATE NORMAL
[2020-02-25] MEDS: ENOXAPARIN NA (PORCINE) 60 MG/0.6 ML DISP.SYRIN SQ SCH ×2 (10:32→22:24)
[2020-02-25] MEDS: PANTOPRAZOLE SODIUM 40 MG VIAL IVPUSH SCH (10:32)
[2020-02-25] MEDS ORDERED: ACETAMINOPHEN 1000 MG/100 ML VIAL (NON FORMULARY) IVPB PRN (11:06)
[2020-02-25] MEDS ORDERED: ACETAMINOPHEN 1000 MG/100 ML VIAL (NON FORMULARY) IVPB ONE (11:07)
[2020-02-25] MEDS ORDERED: hydrALAZINE HCL 20 MG/ML VIAL IVPUSH PRN (12:06)
[2020-02-25] MEDS: amLODIPine BESYLATE 5 MG TABLET (FP) PO SCH (13:26)
[2020-02-25] MEDS ORDERED: MULTIVIT INJECTION ADULT 10 ML in AMINO ACIDS 4.25%/D5W 1,000 ML IV SCH (18:36)
[2020-02-25] MEDS: ZINC SULFATE 220 MG CAPSULE (FP) PO SCH (19:28)
[2020-02-25] MEDS: predniSONE 20 MG TABLET (UD) PO SCH (19:28)
[2020-02-25] MEDS: MULTIVIT INJ. ADULT COMBO WITH VIT K 1 COMBO 10 ML VIAL IV SCH ×2 (19:28→20:43)
[2020-02-25] MEDS: SENNOSIDES 8.6MG TABLET (FP) PO SCH (19:28)
[2020-02-25] MEDS: POLYETHYLENE GLYCOL 3350 119 GM BTL PO SCH (19:28)
[2020-02-25] MEDS: ASCORBIC ACID 500 MG TABLET (FP) PO SCH (19:29)
[2020-02-25] MEDS: AMINO ACIDS 4.25%/D5W 1,000 ML IV SCH ×2 (19:29→20:43)
[2020-02-26] MEDS: MORPHINE SULFATE 2 MG/ML VIAL IVPUSH PRN ×4 (09:25→21:51)
[2020-02-26] MEDS: PANTOPRAZOLE SODIUM 40 MG VIAL IVPUSH SCH (09:26)
[2020-02-26] MEDS: ENOXAPARIN NA (PORCINE) 60 MG/0.6 ML DISP.SYRIN SQ SCH ×2 (09:26→21:12)
[2020-02-26] MEDS ORDERED: methylPREDNISolone NA SUCC 40 MG/1 ML VIAL IVPUSH SCH (10:00)
[2020-02-26] MEDS ORDERED: ACETAMINOPHEN 1000 MG/100 ML VIAL (NON FORMULARY) IVPB PRN (16:29)
[2020-02-26] MEDS: methylPREDNISolone NA SUCC 40 MG/1 ML VIAL IVPUSH SCH (21:12)
[2020-02-26] MEDS: AMINO ACIDS 4.25%/D5W 1,000 ML IV SCH (21:35)
[2020-02-26] MEDS: MULTIVIT INJ. ADULT COMBO WITH VIT K 1 COMBO 10 ML VIAL IV SCH (21:36)
[2020-02-27] MEDS: PANTOPRAZOLE SODIUM 40 MG VIAL IVPUSH SCH (09:09)
[2020-02-27] MEDS: methylPREDNISolone NA SUCC 40 MG/1 ML VIAL IVPUSH SCH ×2 (09:10→21:41)
[2020-02-27] MEDS: ENOXAPARIN NA (PORCINE) 60 MG/0.6 ML DISP.SYRIN SQ SCH ×2 (09:12→21:41)
[2020-02-27] MEDS ORDERED: PIPERACILLIN/TAZOB 3.375 GM 3.375 GM in DEXTROSE 5%-WATER - 50 ML IVPB ONE (11:10)
[2020-02-27] MEDS ORDERED: DEXTROSE 5%-WATER - 50 ML IVPB ONE ×2 (12:04→17:18)
[2020-02-27] MEDS ORDERED: PIPERACILLIN/TAZOBACTAM 3.375 GM VIAL IVPB ONE ×2 (12:04→17:17)
[2020-02-27 12:37] LABS: BASO % 0.5 % (0-2.0); EOS % 0.1 % (0-4.5); HEMATOCRIT 26.8 % (32.4-45.2); HEMOGLOBIN 8.3 GM/dL (10.7-15.3); LYMPH % 8.6 % (8-40); MCH 29.6 pg (25.7-33.7); MCHC 31.1 g/dl (32.0-36.0); MEAN CELL VOLUME 94.9 fl (80-96); MEAN PLT VOLUME 8.8 fl (7.5-11.1); MONO % 0.9 % (3.8-10.2); NEUT % 89.9 % (42.8-82.8); PLATELET COUNT 482 K/MM3 (134-434); RBC 2.82 M/mm3 (3.60-5.2)
[2020-02-27 13:10] LABS: ALBUMIN 1.6 g/dl (3.4-5.0); BILIRUBIN,TOTAL 0.8 mg/dL (0.2-1); BLOOD UREA NITROGEN 47.3 mg/dL (7-18); CALCIUM 8.7 mg/dL (8.5-10.1); CREATININE 0.6 mg/dL (0.55-1.3); MAGNESIUM 2.2 mg/dL (1.8-2.4); POTASSIUM 4.1 mmol/L (3.5-5.1); TOT PROT 6.2 g/dl (6.4-8.2)
[2020-02-27 13:36] LABS: ANISOCYTOSIS 1+; MACROCYTOSIS 0; PLATELET ESTIMATE NORMAL
[2020-02-27] MEDS ORDERED: VANCOMYCIN 1 GRAM (PRE-DOCKED) 1,000 MG/250 ML BAG IVPB ONE (14:29)
[2020-02-27] MEDS: PIPERACILLIN/TAZOB 3.375 GM 3.375 GM in DEXTROSE 5%-WATER - 50 ML IVPB SCH (18:40)
[2020-02-28] MEDS ORDERED: DEXTROSE 5%-WATER - 50 ML IVPB ONE ×3 (00:58→17:04)
[2020-02-28] MEDS ORDERED: PIPERACILLIN/TAZOBACTAM 3.375 GM VIAL IVPB ONE ×3 (00:58→17:04)
[2020-02-28] MEDS: PIPERACILLIN/TAZOB 3.375 GM 3.375 GM in DEXTROSE 5%-WATER - 50 ML IVPB SCH ×3 (02:30→17:23)
[2020-02-28] MEDS: MULTIVIT INJ. ADULT COMBO WITH VIT K 1 COMBO 10 ML VIAL IV SCH ×2 (02:30→23:33)
[2020-02-28] MEDS: AMINO ACIDS 4.25%/D5W 1,000 ML IV SCH ×2 (02:31→23:34)
[2020-02-28] MEDS ORDERED: METOPROLOL TARTRATE 5 MG/5 ML VIAL IVPB PRN (07:33)
[2020-02-28] MEDS: PANTOPRAZOLE SODIUM 40 MG VIAL IVPUSH SCH (09:04)
[2020-02-28] MEDS: methylPREDNISolone NA SUCC 40 MG/1 ML VIAL IVPUSH SCH ×2 (09:04→21:31)
[2020-02-28] MEDS: MORPHINE SULFATE 2 MG/ML VIAL IVPUSH PRN ×2 (09:04→20:05)
[2020-02-28] MEDS: ENOXAPARIN NA (PORCINE) 60 MG/0.6 ML DISP.SYRIN SQ SCH ×2 (09:07→21:31)
[2020-02-28 11:09] LABS: BASO % 0.3 % (0-2.0); EOS % 0.1 % (0-4.5); HEMATOCRIT 26.3 % (32.4-45.2); HEMOGLOBIN 8.4 GM/dL (10.7-15.3); MCH 30.4 pg (25.7-33.7); MCHC 31.7 g/dl (32.0-36.0); MEAN CELL VOLUME 95.8 fl (80-96); MEAN PLT VOLUME 8.9 fl (7.5-11.1); MONO % 0.6 % (3.8-10.2); PLATELET COUNT 440 K/MM3 (134-434); RBC 2.75 M/mm3 (3.60-5.2); RDW 18.9 % (11.6-15.6); WHITE BLOOD COUNT 9.4 K/mm3 (4.0-10.0)
[2020-02-28 12:12] LABS: ALBUMIN 1.6 g/dl (3.4-5.0); BILIRUBIN,TOTAL 0.8 mg/dL (0.2-1); BLOOD UREA NITROGEN 59.2 mg/dL (7-18); CALCIUM 8.6 mg/dL (8.5-10.1); CREATININE 0.9 mg/dL (0.55-1.3); POTASSIUM 3.8 mmol/L (3.5-5.1); TOT PROT 6.3 g/dl (6.4-8.2)
[2020-02-28 12:36] LABS: ANISOCYTOSIS 1+; CORRECTED WBC 8.39 K/mm3; MACROCYTOSIS 1+; PLATELET ESTIMATE NORMAL
[2020-02-29] MEDS ORDERED: PIPERACILLIN/TAZOBACTAM 3.375 GM VIAL IVPB ONE ×3 (01:10→16:36)
[2020-02-29] MEDS ORDERED: DEXTROSE 5%-WATER - 50 ML IVPB ONE ×3 (01:10→16:36)
[2020-02-29] MEDS: PIPERACILLIN/TAZOB 3.375 GM 3.375 GM in DEXTROSE 5%-WATER - 50 ML IVPB SCH ×3 (01:41→17:30)
[2020-02-29] MEDS: MORPHINE SULFATE 2 MG/ML VIAL IVPUSH PRN ×3 (02:22→17:36)
[2020-02-29 08:36] LABS: HEMATOCRIT 23.5 % (32.4-45.2); HEMOGLOBIN 7.4 GM/dL (10.7-15.3); MCHC 31.5 g/dl (32.0-36.0); MEAN CELL VOLUME 95.1 fl (80-96); MEAN PLT VOLUME 9.1 fl (7.5-11.1); MONO % 0.6 % (3.8-10.2); NEUT % 90.4 % (42.8-82.8); PLATELET COUNT 367 K/MM3 (134-434); RBC 2.47 M/mm3 (3.60-5.2); RDW 19.1 % (11.6-15.6)
[2020-02-29 08:44] LABS: WHITE BLOOD COUNT 10.9 K/mm3 (4.0-10.0)
[2020-02-29 09:43] LABS: ALBUMIN 1.3 g/dl (3.4-5.0); BILIRUBIN,TOTAL 0.9 mg/dL (0.2-1); BLOOD UREA NITROGEN 82.9 mg/dL (7-18); CALCIUM 8.6 mg/dL (8.5-10.1); CREATININE 1.8 mg/dL (0.55-1.3); MAGNESIUM 2.1 mg/dL (1.8-2.4); POTASSIUM 4.1 mmol/L (3.5-5.1); TOT PROT 6.3 g/dl (6.4-8.2)
[2020-02-29 10:09] LABS: ANISOCYTOSIS 1+; MACROCYTOSIS 1+; PLATELET ESTIMATE NORMAL
[2020-02-29] MEDS: ENOXAPARIN NA (PORCINE) 60 MG/0.6 ML DISP.SYRIN SQ SCH (10:18)
[2020-02-29] MEDS: methylPREDNISolone NA SUCC 40 MG/1 ML VIAL IVPUSH SCH (10:18)
[2020-02-29] MEDS: PANTOPRAZOLE SODIUM 40 MG VIAL IVPUSH SCH (10:18)
[2020-02-29 10:46] LABS: CORRECTED WBC 9.81 K/mm3
[2020-02-29] MEDS: AMINO ACIDS 4.25%/D5W 1,000 ML IV SCH (21:51)
[2020-02-29] MEDS: MULTIVIT INJ. ADULT COMBO WITH VIT K 1 COMBO 10 ML VIAL IV SCH (21:51)
[2020-03-01] MEDS: ENOXAPARIN NA (PORCINE) 60 MG/0.6 ML DISP.SYRIN SQ SCH ×3 (00:12→21:05)
[2020-03-01] MEDS: methylPREDNISolone NA SUCC 40 MG/1 ML VIAL IVPUSH SCH ×3 (00:12→21:05)
[2020-03-01] MEDS ORDERED: PIPERACILLIN/TAZOBACTAM 3.375 GM VIAL IVPB ONE ×3 (03:03→17:38)
[2020-03-01] MEDS ORDERED: DEXTROSE 5%-WATER - 50 ML IVPB ONE ×3 (03:04→17:38)
[2020-03-01] MEDS: MORPHINE SULFATE 2 MG/ML VIAL IVPUSH PRN ×5 (04:35→17:44)
[2020-03-01] MEDS: PIPERACILLIN/TAZOB 3.375 GM 3.375 GM in DEXTROSE 5%-WATER - 50 ML IVPB SCH ×3 (09:35→17:44)
[2020-03-01] MEDS: PANTOPRAZOLE SODIUM 40 MG VIAL IVPUSH SCH (09:35)
[2020-03-01] MEDS ORDERED: LORazepam 2 MG/ML SDV VIAL IVPUSH PRN (10:03)
[2020-03-01] MEDS ORDERED: BISACODYL 10 MG SUPP.RECT PR PRN (10:04)
[2020-03-01] MEDS ORDERED: ACETAMINOPHEN 650 MG SUPP.RECT RC PRN (10:04)
[2020-03-01] MEDS ORDERED: ACETAMINOPHEN 1000 MG/100 ML VIAL (NON FORMULARY) IVPB ONE (10:12)
[2020-03-01] MEDS: AMINO ACIDS 4.25%/D5W 1,000 ML IV SCH (18:15)
[2020-03-01] MEDS: MULTIVIT INJ. ADULT COMBO WITH VIT K 1 COMBO 10 ML VIAL IV SCH (18:16)
[2020-03-02] MEDS ORDERED: PIPERACILLIN/TAZOBACTAM 3.375 GM VIAL IVPB ONE (00:21)
[2020-03-02] MEDS ORDERED: DEXTROSE 5%-WATER - 50 ML IVPB ONE (00:21)
[2020-03-02] MEDS: PIPERACILLIN/TAZOB 3.375 GM 3.375 GM in DEXTROSE 5%-WATER - 50 ML IVPB SCH (00:59)
[2020-03-02 06:57] VITALS: BP 72/39; PULSE 58; TEMP 98.1
== END 2020-03-02 11:00 | disposition expired | DRG 177 ==
LOC: EDBD 17:28 → JER 17:28 → JERBED 20:38 → J4W 01-01 03:41 → JICU 01-09 00:43 → J4W 01-21 12:02 → JICU 01-27 08:53 → J4W 02-03 17:05 → JICU 02-08 14:51 → J4S 02-23 21:21
PROVIDERS: ADMIT Internal Medicine; ATTEND Nurse Practitioner Family
PROC: 8E0ZXY6 Isolation (ICD-10-PCS; principal; 2019-12-31)
PROC: 30233L1 Transfusion of Nonautologous Fresh Plasma into Peripheral Vein, Percutaneous Approach (ICD-10-PCS; 2020-01-24)
PROC: 5A09457 Assistance with Respiratory Ventilation, 24-96 Consecutive Hours, Continuous Positive Airway Pressure (ICD-10-PCS; 2020-01-26)
DX: U07.1 COVID-19 (principal); J96.01 Acute respiratory failure with hypoxia; A41.89 Other specified sepsis; J96.02 Acute respiratory failure with hypercapnia; J12.89 Other viral pneumonia; N17.9 Acute kidney failure, unspecified; E87.0 Hyperosmolality and hypernatremia; E87.2 Acidosis; E46 Unspecified protein-calorie malnutrition; I10 Essential (primary) hypertension; E78.5 Hyperlipidemia, unspecified; E88.09 Other disorders of plasma-protein metabolism, not elsewhere classified; R79.89 Other specified abnormal findings of blood chemistry; R82.81 Pyuria; M79.81 Nontraumatic hematoma of soft tissue; Z66 Do not resuscitate; E11.9 Type 2 diabetes mellitus without complications; K29.60 Other gastritis without bleeding
CPT/HCPCS: 36415; 36430; 36600; 71045-TC-FY; 80048; 80053; 80061; 81003; 82308; 82375; 82550; 82553; 82728; 82803; 82962; 83036; 83050; 83605; 83615; 83721; 83735; 84100; 84484; 85025; 85027; 85379; 85384; 85610; 85730; 86140; 86850; 86900; 86901; 87040; 87086; 93005; 93010; 93971; 94660; 97162-GP; 99285-25; J0131; P9017; U0002; U0003